=== PATIENT | male | born 1960 | race Caucasian/White ===

== ENCOUNTER 2016-10-02 21:10 | Inpatient (IN) | payer MEDICARE, OTHER ==
[~2016-10-02] VITALS: Ht 177.8 cm; Wt 86.5 kg
[~2016-10-02 21:10] MED LIST: ALBU0.086 INH; DIAZ10 PO; DILA8TAB4 PO; EXFO5TAB PO; IBUP800T23 PO; LORTA10 PO; ROBA750T3 PO; SOMA250T PO
[2016-10-02 21:14] VITALS: BP 159/86; PULSE 128; RESP 20; TEMP 101.9; O2SAT 94
[2016-10-02] MEDS ORDERED: SODIUM CHLOR 0.9% 1000 ML INJ 1,000 ML IV ONE ×2 (21:16)
[2016-10-02] MEDS ORDERED: SODIUM CHLOR 0.9% 1000 ML INJ 700 ML IV ONE (21:16)
[2016-10-02] MEDS ORDERED: MORP1TAB25 PO (21:19)
[2016-10-02] MEDS ORDERED: GLIM2TAB PO (21:19)
[2016-10-02] MEDS ORDERED: HYDR-3583 PO (21:19)
[2016-10-02] MEDS ORDERED: AMLO5TAB2 PO (21:19)
[2016-10-02 21:32] VITALS: RESP 20; O2SAT 97
--- NOTE | 2016-10-02 21:41 | RADRPT ---
EXAM DATE/TIME: 10/02/2016 21:20 [facility] COMPARISON: No previous studies available for comparison. INDICATIONS : Fever. MEDICAL HISTORY : None. SURGICAL HISTORY : Pain stimulator. ENCOUNTER: Initial ACUITY: 1 day PAIN SCORE: 0/10 LOCATION: Bilateral chest FINDINGS: Spinal stimulator is noted. Lungs are clear. Heart and pulmonary vascularity are normal. Portions o f the bony skeleton visualized are unremarkable. CONCLUSION: Negative chest for acute disease. Kevin Spicer MD FACR on October 02, 2016 at 21:38 Board Certified Radiologist. This report was verified electronically.
[2016-10-02] MEDS ORDERED: PIPERACIL-TAZO 4.5 GM PREMIX 100 ML IV ONE (21:45)
[2016-10-02] MEDS ORDERED: VANCOMYCIN INJ 1,000 MG in SODIUM CHLOR 0.9% 250 ML INJ 250 ML IV ONE (21:45)
[2016-10-02 21:55] LABS: AUTOMATED NEUTROPHIL # 4.7 TH/MM3 (1.8-7.7); BASOPHIL % 0.3 % (0.0-2.0); EOSINOPHIL # 0.1 TH/MM3 (0-0.4); EOSINOPHIL % 1.1 % (0.0-4.0); HEMATOCRIT 39.4 % (39.0-51.0); HEMO FLAGS DIFF FINAL; LYMPH % 7.6 % (9.0-44.0); LYMPHOCYTE # 0.4 TH/MM3 (1.0-4.8); MEAN CORPUSCULAR HEMOGLOBIN 29.5 PG (27.0-34.0); MEAN CORPUSCULAR HGB CONC 33.5 % (32.0-36.0); MONO % 5.8 % (0.0-8.0); NEUT % 85.2 % (16.0-70.0); PLATELET COUNT 123 TH/MM3 (150-450); RED BLOOD COUNT 4.48 MIL/MM3 (4.50-5.90); RED CELL DISTRIBUTION WIDTH 13.8 % (11.6-17.2); WHITE BLOOD COUNT 5.5 TH/MM3 (4.0-11.0)
[2016-10-02 22:02] LABS: BLOOD, URINE NEG (NEG); GLUCOSE,URINE NEG (NEG); KETONE, URINE NEG (NEG); NITRITE,URINE NEG (NEG); SQUAMOUS EPITHELIAL CELL URINE 1 /hpf (0-5); URINE COLOR YELLOW (YELLW/STRAW)
[2016-10-02 22:03] LABS: COMMENT (UR) CATH-CULT NOT IND; CULTURE IF INDICATED CATH CULTURE NOT IND
--- NOTE | 2016-10-02 22:09 | RADRPT ---
EXAM DATE/TIME: 10/02/2016 21:45 [facility] COMPARISON: CT BRAIN W/O CONTRAST, March 09, 2014, 0:48. INDICATIONS : Possible seizure today. Head pain RADIATION DOSE: 43.21 CTDIvol (mGy) MEDICAL HISTORY : Hypertension. Seizures. Cerebrovascular disease. SURGICAL HISTORY : None. ENCOUNTER: Initial ACUITY: 1 day PAIN SCALE: 6/10 LOCATION: Cranial TECHNIQUE: Multiple contiguous axial images were obtained of the head. Using automated exposure control and adjustment of the mA and/or kV according to patient size, radiation dose was kept as low as reasonably achievable to obtain optimal diagnostic quality images. FINDINGS: The patient has a history of an ununited dens fracture. Ventricles are of normal size. There is no parenchymal hemorrhage, mass effect or midline shift. There are no extra-axial flu id collections appreciated. Posterior fossa is unremarkable. Orbits and paranasal sinuses appear normal. CONCLUSION: Negative CT scan of the head for an acute process. Kevin Spicer MD FACR on October 02, 2016 at 21:55 Board Certified Radiologist. This report was verified electronically.
[2016-10-02 22:10] LABS: APTT (PATIENT) 29.6 SEC (24.3-30.1); PROTHROMBIN TIME - PATIENT 10.6 SEC (9.8-11.6)
[2016-10-02] MEDS ORDERED: MORPHINE SULFATE 8 MG/ML INJ IV PUSH ONE (22:15)
[2016-10-02 22:29] LABS: ALKALINE PHOSPHATASE 159 U/L (45-117); ALT (GPT) 17 U/L (12-78); ANION GAP 7 MEQ/L (5-15); AST (GOT) 22 U/L (15-37); BLOOD UREA NITROGEN 12 MG/DL (7-18); CHLORIDE 105 MEQ/L (98-107); GLOMERULAR FILTRATION RATE 59 ML/MIN (>89); POTASSIUM 4.5 MEQ/L (3.5-5.1); SODIUM (NA) 138 MEQ/L (136-145); TOTAL BILIRUBIN ADULT 0.5 MG/DL (0.2-1.0)
[2016-10-02 22:30] VITALS: BP 146/89; PULSE 121; RESP 20; O2SAT 97
[2016-10-02] MEDS ORDERED: ACETAMINOPHEN 325 MG TAB PO ONE (22:30)
[2016-10-02 22:38] LABS: CREATINE KINASE 94 U/L (39-308)
[2016-10-02 23:35] VITALS: BP 120/86; PULSE 110; RESP 20; TEMP 100.1; O2SAT 99
[2016-10-03] VITALS (9 sets, daily range): BP systolic 91–137; BP diastolic 62–84; PULSE 62–113; RESP 15–20; TEMP 98.1–100.1; O2SAT 94–100
[2016-10-03] MEDS ORDERED: cefTRIAXone INJ 1,000 MG in SODIUM CHLORIDE 0.9% INJ 100 ML IV ONE (00:45)
[2016-10-03] MEDS ORDERED: Vancomycin Consult Pharmacy XX SCH (01:30)
[2016-10-03] MEDS ORDERED: SODIUM CHLORIDE FLUSH PRN IVF (01:30)
--- NOTE | 2016-10-03 01:49 | RADRPT ---
EXAM DATE/TIME: 10/03/2016 01:01 [facility] COMPARISON: No previous studies available for comparison. INDICATIONS : Lower back pain MEDICAL HISTORY : Hypertension. Seizures. Cerebrovascular disease SURGICAL HISTORY : Lumbar fusions ENCOUNTER: Initial ACUITY: 1 day PAIN SCORE: 5/10 LOCATION: lumbar FINDINGS: A spinal stimulator apparatus is present with control pack overlying the right iliac crest. There has been multilevel lobar spine fusion with hardware. The hardware is intact. Is minimal retrolisthesis of L3 relative to L4 with fusion across these levels. Mild degenerative changes present. No acute bon y findings. CONCLUSION: Degenerative changes and previous lumbar fusion. Spinal stimulator. No acute findings. Jayce Patel MD on October 03, 2016 at 1:46 Board Certified Radiologist. This report was verified electronically.
[2016-10-03] MEDS ORDERED: MORPHINE SULFATE 4 MG/ML INJ IV PUSH ONE (02:00)
[2016-10-03 02:02] LABS: AMPHETAMINE, URINE NEG (NEG); BARBITURATES, URINE NEG (NEG); COCAINE, URINE NEG (NEG)
[2016-10-03 03:01] LABS: CSF LYMPHOCYTES 54 %; CSF MONOCYTES 34 %; CSF NEUTROPHILS 12 %; GROSS BLOOD TUBE #1 1+ (0); GROSS BLOOD TUBE #2 0 (0); GROSS BLOOD TUBE #3 0 (0); GROSS BLOOD TUBE #4 0 (0); SUPERNATE COLOR TUBE #1 CLEAR (CLEAR); SUPERNATE COLOR TUBE #2 CLEAR (CLEAR); SUPERNATE COLOR TUBE #3 CLEAR (CLEAR); SUPERNATE COLOR TUBE #4 CLEAR (CLEAR); WBC TUBE #4 2 /MM3 (0-10)
--- NOTE | 2016-10-03 03:06 | PD ---
HPI Chief Complaint: Altered Mental Status Time Seen by Provider: 21:16 Travel History International Travel<30 days: No Contact w/Intl Traveler<30days: No Traveled to known affect area: No History of Present Illness HPI Patient is a 55 year old male presents after a seizure. Per EMS patient has a history of seizures and was not postictal on their arrival. He was febrile in the ambulance to 102F. they also noted that the patient had a track domi on his right AC area and after some questioning patient admitted to using IV dilaudid. On arrival patient is fairly aggrevated, stating that he wanted to go home. Patient's family arrives and states that the patient is altered sensorium from his baseline. THey state he is "talking out of his mind". Patient is therefore difficult to get history from but states that has a history of chronic back pain and has nerve stimulator in place. Other than back pain he denies SOB, Cough, Fevers at home, congestion, runny nose, headache , abdominal pain, rash. PFSH Past Medical History Arthritis: Yes Autoimmune Disease: No Anxiety: Yes Cancer: No High Cholesterol: Yes COPD: Yes Cerebrovascular Accident: Yes Diminished Hearing: No Endocrine: No Hypertension: Yes Immune Disorder: No Musculoskeletal: Yes (CHRONIC BACK/ KNEE PAIN) Neurologic: Yes (was told he has a brain mass) Myocardial Infarction: Yes Seizures: Yes Tetanus Vaccination: Unknown Influenza Vaccination: No Past Surgical History Joint Replacement: Yes (BILATERAL KNEES) Other Surgery: Yes Social History Alcohol Use: Yes (OCC) Tobacco Use: Yes (3 PPD) Substance Use: No ("SHOT UP DILAUDID TODAY") Allergies-Medications (Allergen,Severity, Reaction): Coded Allergies: No Known Allergies (Verified , 10/02/16) Reported Meds & Prescriptions Reported Meds & Active Scripts Active Reported Amlodipine (Amlodipine Besylate) 5 Mg Tab 5 Mg PO DAILY Glimepiride 2 Mg Tab 2 Mg PO DAILY Take with breakfast or first main meal Morphine ER (Morphine Sulfate) 30 Mg Tab 30 Mg PO BID Hydrocodone-Acetaminophen 10-325 mg Tab 1 Tab PO Q4H PRN Review of Systems Except as stated in HPI: all other systems reviewed are Neg Physical Exam Narrative GENERAL: WD/WN in nad. SKIN: Warm and dry. No rash. HEAD: Atraumatic. Normocephalic. EYES: Pupils equal and round. No scleral icterus. No injection or drainage. ENT: No nasal bleeding or discharge. Mucous membranes pink and moist. NECK: Trachea midline. No JVD. CARDIOVASCULAR: Regular rate and rhythm. RESPIRATORY: No accessory muscle use. Clear to auscultation. Breath sounds equal bilaterally. GASTROINTESTINAL: Abdomen soft, non-tender, nondistended. Hepatic and splenic margins not palpable. MUSCULOSKELETAL: Extremities without clubbing, cyanosis, or edema. No obvious deformities. NEUROLOGICAL: Awake and alert oriented to person and place. Becomes quite agitated when i ask him the date and he will not answer. He yells and uses profanities after this questioning. No obvious cranial nerve deficits. Motor grossly within normal limits. Five out of 5 muscle strength in the arms and legs. Normal speech. PSYCHIATRIC: Appropriate mood and affect; insight and judgment normal. Data Data Last Documented VS Vital Signs Date Time Temp Pulse Resp B/P Pulse Ox O2 Delivery O2 Flow Rate FiO2 10/03/16 00:48 18 10/03/16 00:30 100.1 113 113/67 98 Room Air Orders Electrocardiogram (10/02/16 21:16) Complete Blood Count With Diff (10/02/16 21:16) Comprehensive Metabolic Panel (10/02/16 21:16) Prothrombin Time / Inr (Pt) (10/02/16 21:16) Act Partial Throm Time (Ptt) (10/02/16 21:16) Lactic Acid Sepsis Protocol (10/02/16 21:16) Phosphorus (Po4) (10/02/16 21:16) Lipase (10/02/16 21:16) Ckmb (Isoenzyme) Profile (10/02/16 21:16) Troponin I (10/02/16 21:16) Urinalysis - C+S If Indicated (10/02/16 21:16) Influenzae A/B Antigen (10/02/16 21:16) Blood Culture (10/02/16 21:16) Chest, Single Ap (10/02/16 21:16) Blood Glucose (10/02/16 21:16) Ecg Monitoring (10/02/16 21:16) Iv Access Insert/Monitor (10/02/16 21:16) Oximetry (10/02/16 21:16) Oxygen Administration (10/02/16 21:16) Sodium Chlor 0.9% 1000 Ml Inj (Ns 1000 M (10/02/16 21:16) Sodium Chlor 0.9% 1000 Ml Inj (Ns 1000 M (10/02/16 21:16) Sodium Chlor 0.9% 1000 Ml Inj (Ns 1000 M (10/02/16 21:16) Ammonia (10/02/16 21:21) Ct Brain W/O Iv Contrast(Rout) (10/02/16 ) Piperacil-Tazo 4.5 Gm Premix (Zosyn 4.5 (10/02/16 21:45) Vancomycin Inj (Vancomycin Inj) (10/02/16 21:45) Drug Screen, Random Urine (10/02/16 21:52) Alcohol (Ethanol) (10/02/16 21:52) Morphine Inj (Morphine Inj) (10/02/16 22:15) Acetaminophen (Tylenol) (10/02/16 22:30) Spine, Lumbar - Ltd (Ap & Lat) (10/03/16 ) Ceftriaxone Inj (Rocephin Inj) (10/03/16 00:45) Admit Order (Ed Use Only) (10/03/16 ) Labs Laboratory Tests Test 10/02/16 10/02/16 21:27 21:30 White Blood Count 5.5 TH/MM3 Red Blood Count 4.48 MIL/MM3 Hemoglobin 13.2 GM/DL Hematocrit 39.4 % Mean Corpuscular Volume 88.0 FL Mean Corpuscular Hemoglobin 29.5 PG Mean Corpuscular Hemoglobin 33.5 % Concent Red Cell Distribution Width 13.8 % Platelet Count 123 TH/MM3 Mean Platelet Volume 10.2 FL Neutrophils (%) (Auto) 85.2 % Lymphocytes (%) (Auto) 7.6 % Monocytes (%) (Auto) 5.8 % Eosinophils (%) (Auto) 1.1 % Basophils (%) (Auto) 0.3 % Neutrophils # (Auto) 4.7 TH/MM3 Lymphocytes # (Auto) 0.4 TH/MM3 Monocytes # (Auto) 0.3 TH/MM3 Eosinophils # (Auto) 0.1 TH/MM3 Basophils # (Auto) 0.0 TH/MM3 CBC Comment DIFF FINAL Differential Comment Prothrombin Time 10.6 SEC Prothromb Time International 1.0 RATIO Ratio Activated Partial 29.6 SEC Thromboplast Time Sodium Level 138 MEQ/L Potassium Level 4.5 MEQ/L Chloride Level 105 MEQ/L Carbon Dioxide Level 26.0 MEQ/L Anion Gap 7 MEQ/L Blood Urea Nitrogen 12 MG/DL Creatinine 1.27 MG/DL Estimat Glomerular Filtration 59 ML/MIN Rate Random Glucose 117 MG/DL Lactic Acid Level 1.0 mmol/L Calcium Level 7.9 MG/DL Phosphorus Level 1.0 MG/DL Total Bilirubin 0.5 MG/DL Aspartate Amino Transf 22 U/L (AST/SGOT) Alanine Aminotransferase 17 U/L (ALT/SGPT) Alkaline Phosphatase 159 U/L Ammonia 40 MCMOL/L Total Creatine Kinase 94 U/L Troponin I LESS THAN 0.02 NG/ML Total Protein 7.6 GM/DL Albumin 3.4 GM/DL Lipase 152 U/L Ethyl Alcohol Level LESS THAN 3 MG/DL Urine Color YELLOW Urine Turbidity CLEAR Urine pH 7.0 Urine Specific [place] 1.010 Urine Protein NEG mg/dL Urine Glucose (UA) NEG mg/dL Urine Ketones NEG mg/dL Urine Occult Blood NEG Urine Nitrite NEG Urine Bilirubin NEG Urine Urobilinogen LESS THAN 2.0 MG/DL Urine Leukocyte Esterase NEG Urine WBC 1 /hpf Urine Squamous Epithelial 1 /hpf Cells Microscopic Urinalysis Comment CATH-CULT NOT IND Urine Opiates Screen POS Urine Barbiturates Screen NEG Urine Amphetamines Screen NEG Urine Benzodiazepines Screen NEG Urine Cocaine Screen NEG Urine Cannabinoids Screen NEG MDM Medical Decision Making Medical Screen Exam Complete: Yes Emergency Medical Condition: Yes Differential Diagnosis Sepsis, Meningitis, Epidural abscess possible, PNA, bacteremia. Narrative Course Patient roomed in ED with fever and mild altered mental status. Was called back into room after initial evaluation because patient stated he wanted to leave. He was calmed by his family who convinced him to stay. He was administered morphine as he requested something for his chronic back pain. Patient has nerve stimulator contraindicating MRI. After morphine, patient was apologetic to me and nursing staff. He is now understanding r/b/c/a of LP and consents for procedure. XR LSpine performed to evaluate for LP and there are spaces available. LP performed and yielded clear fluid. Patient is IVD user ( admits IV dilaudid use to me) and has fever of yet unknown source. Discussed with Dr. Beasley for admission to the hospital and he is agreeable. Patient initially covered for vanc and zosyn rocephin added for [employer] coverage prior to LP. Lactic acid negative. After 3L fluid, HR, temp normalized. Overall improved in ED. Critical Care Narrative Critical Care: The total critical care time was 30 minutes. This time spent discussing with consultants, counseling patient and family. Risks to patient were and disability. Time to perform other separately billable procedures was not included in the critical care time. Procedures Procedure Narrative LP: after informed consent where all r/b/c/a where discussed including infectious risk and risk to spinal hardware and nerve stimulator, patient verbalized understanding and agreement to the r/b/c/a and agreed to procedure. Consent signed. Patient prepped with betadine and draped. Cap and mask used. Sterile gloves and technique. L3/L4 site chosen after confirming on xray an open foramen. Patient anesthetized with 1% lidocaine plain. 20g spinal needle passed on first attempt, yielding blood tinged fluid which quickly cleared. 6 cc aliquoted into 4 tubes. Sent for testing. Needle removed, patient tolerated the procedure well with no immediate complication. Diagnosis Primary Impression: Toxic encephalopathy Additional Impressions: Fever Sepsis Admitting Information Admitting Physician Requests: Admit Condition: Stable Mao Bell MD Oct 03, 2016 03:06
[2016-10-03] MEDS ORDERED: GLIMEPIRIDE 2 MG TAB PO SCH (08:00)
[2016-10-03] MEDS: NICOTINE 14 MG/24 HR PATCH TD SCH (08:50)
[2016-10-03] MEDS: amLODIPine BESYLATE 5 MG TAB PO SCH (08:51)
[2016-10-03] MEDS: SODIUM CHLORIDE FLUSH BID IVF SCH ×2 (08:52→20:28)
[2016-10-03] MEDS: MORPHINE SULFATE 30 MG CONTROLLED RELEASE TAB PO SCH ×2 (08:52→20:28)
--- NOTE | 2016-10-03 09:52 | HHI.HP ---
HPI Service CP Hospitalists Primary Care Physician No Primary Care Physician Admission Diagnosis Fever, Altered mental status, SEPSIS. Chief Complaint: Fever Travel History International Travel<30 Days: No Contact w/Intl Traveler <30 Da: No Traveled to Known Affected Are: No History of Present Illness Mr. Vee is a 55 y/o male with seizure disorder, CAD/hx of [place], Hx of CVA with residual left sided weakness who was brought to the ER at [facility] a possible seizure by EMS. Pts daughter lives with him and she called emergency services. Unfortunately she is not available to speak with to obtain further history. Upon arrival in the ER the pt was febrile with a temp of 101.9. The pt was noted to have a track domi on his right AC area and after some questioning patient admitted to using IV Dilaudid. On arrival to the ED pt was reportedly very altered and aggravated. He was calmed by his family who convinced him to stay. Pt does not remember events from yesterday of what brought him into the ER. He admits to previous IVDA with Dilaudid but will not commit to a time frame as to when he last did this. LP was performed in the ER and yielded clear fluid elevated protein level of 66.6. Gram stain and culture of CSF are pending. Pt was given Vanco, Rocephin and Zosyn in the ER. Pt without any specific complaints otherwise. He has been afebrile since admission. Review of Systems Constitutional: COMPLAINS OF: Fever Eyes: DENIES: Vision loss Ears, nose, mouth, throat: DENIES: Hearing loss Respiratory: DENIES: Shortness of breath Cardiovascular: DENIES: Chest pain, Palpitations Gastrointestinal: DENIES: Abdominal pain, Nausea Genitourinary: DENIES: Hematuria, Dysuria Musculoskeletal: DENIES: Back pain, Neck pain Psychiatric: COMPLAINS OF: Confusion, Agitation Past Family Social History Past Medical History Seizure disorder Hx of CVA with LLE weakness CAD with hx of [place] in 2008 Angina Type 2 diabetes mellitus, diet controlled Peripheral neuropathy secondary to diabetes COPD Arthritis HTN Chronic back pain/DDD MIRA not on CPAP Hx of gout IVDA Past Surgical History Back surgery 03/[address] Boyce Bilateral knee surgery 02/2010 Reported Medications Amlodipine (Amlodipine Besylate) 5 Mg Tab 5 Mg PO DAILY Morphine ER (Morphine Sulfate) 30 Mg Tab 30 Mg PO BID Hydrocodone-Acetaminophen 10-325 mg Tab 1 Tab PO Q4H PRN ?Gabapentin 100mg po BID ?Tramadol 50mg PO BID Allergies: Coded Allergies: No Known Allergies (Verified , 10/02/16) Family History Mother at 70 y/o CAD/[place] Father age 52 CAD/[place] 5 siblings, one brother with lung cancer and one with CAD s/p CABG Social History (+)TObacco use, smoked 1.5 ppd Denies any alcohol or illicit drug use Pt is and has 3 children Unemployed currently Physical Exam Vital Signs Vital Signs Date Time Temp Pulse Resp B/P Pulse Ox O2 Delivery O2 Flow Rate FiO2 10/03/16 07:18 68 16 112/68 98 Room Air 10/03/16 04:00 99.2 72 16 91/62 95 Room Air 10/03/16 03:36 16 10/03/16 00:48 18 10/03/16 00:30 100.1 113 20 113/67 98 Room Air 10/02/16 23:35 100.1 110 20 120/86 99 Room Air 10/02/16 22:44 20 10/02/16 22:30 121 20 146/89 97 Room Air 10/02/16 21:32 20 97 10/02/16 21:32 97 Room Air 10/02/16 21:20 124 20 96 Room Air 10/02/16 21:14 101.9 128 20 159/86 94 Physical Exam GENERAL: This is a well-nourished, well-developed patient, in no apparent distress. HEENT: Atraumatic. Normocephalic. No temporal or scalp tenderness. No scleral icterus. Airway patent. NECK: Trachea midline, supple, nontender. CARDIO: Regular. RESP: CTA bilaterally. No wheezes, rales, or rhonchi. ABD: +BS, soft, non-tender, nondistended. EXT: Extremities without clubbing, cyanosis, or edema. NEURO: Awake and alert. Motor and sensory grossly within normal limits. Normal speech. Laboratory Laboratory Tests Test 10/02/16 10/02/16 10/03/16 21:27 21:30 01:40 White Blood Count 5.5 Red Blood Count 4.48 Hemoglobin 13.2 Hematocrit 39.4 Mean Corpuscular Volume 88.0 Mean Corpuscular Hemoglobin 29.5 Mean Corpuscular Hemoglobin 33.5 Concent Red Cell Distribution Width 13.8 Platelet Count 123 Mean Platelet Volume 10.2 Neutrophils (%) (Auto) 85.2 Lymphocytes (%) (Auto) 7.6 Monocytes (%) (Auto) 5.8 Eosinophils (%) (Auto) 1.1 Basophils (%) (Auto) 0.3 Neutrophils # (Auto) 4.7 Lymphocytes # (Auto) 0.4 Monocytes # (Auto) 0.3 Eosinophils # (Auto) 0.1 Basophils # (Auto) 0.0 CBC Comment DIFF FINAL Differential Comment Prothrombin Time 10.6 Prothromb Time International 1.0 Ratio Activated Partial 29.6 Thromboplast Time Sodium Level 138 Potassium Level 4.5 Chloride Level 105 Carbon Dioxide Level 26.0 Anion Gap 7 Blood Urea Nitrogen 12 Creatinine 1.27 Estimat Glomerular Filtration 59 Rate Random Glucose 117 Lactic Acid Level 1.0 Calcium Level 7.9 Phosphorus Level 1.0 Total Bilirubin 0.5 Aspartate Amino Transf 22 (AST/SGOT) Alanine Aminotransferase 17 (ALT/SGPT) Alkaline Phosphatase 159 Ammonia 40 Total Creatine Kinase 94 Troponin I LESS THAN 0.02 Total Protein 7.6 Albumin 3.4 Lipase 152 Ethyl Alcohol Level LESS THAN 3 Urine Color YELLOW Urine Turbidity CLEAR Urine pH 7.0 Urine Specific [place] 1.010 Urine Protein NEG Urine Glucose (UA) NEG Urine Ketones NEG Urine Occult Blood NEG Urine Nitrite NEG Urine Bilirubin NEG Urine Urobilinogen LESS THAN 2.0 Urine Leukocyte Esterase NEG Urine WBC 1 Urine Squamous Epithelial 1 Cells Microscopic Urinalysis Comment CATH-CULT NOT IND Urine Opiates Screen POS Urine Barbiturates Screen NEG Urine Amphetamines Screen NEG Urine Benzodiazepines Screen NEG Urine Cocaine Screen NEG Urine Cannabinoids Screen NEG CSF Volume (Tube 1) 1.0 CSF Supernatant Color (tube 1) CLEAR CSF Gross Blood (Tube 1) 1+ CSF Volume (Tube 2) 1.0 CSF Supernatant Color (tube 2) CLEAR CSF Gross Blood (Tube 2) 0 CSF Volume (Tube 3) 2.0 CSF Supernatant Color (tube 3) CLEAR CSF Gross Blood (Tube 3) 0 CSF Volume (Tube 4) 2.0 CSF Supernatant Color (tube 4) CLEAR CSF Gross Blood (Tube 4) 0 CSF WBC (Tube 4) 2 CSF RBC (Tube 4) 17 CSF Neutrophils 12 CSF Lymphocytes 54 CSF Monocytes 34 CSF Glucose 74 CSF Total Protein 66.6 Date/Time Procedure Status Source Growth 10/03/16 01:40 Gram Stain - Final Resulted Cerebral Spinal Fluid Lumbar Puncture 10/03/16 01:40 CSF Culture Resulted Cerebral Spinal Fluid Lumbar Puncture Pending 10/03/16 01:40 Fungal Smear Received Cerebral Spinal Fluid Lumbar Puncture Pending 10/03/16 01:40 Fungal Culture Received Cerebral Spinal Fluid Lumbar Puncture Pending 10/02/16 21:27 Aerobic Blood Culture Received Blood Peripheral Pending 10/02/16 21:27 Anaerobic Blood Culture Received Blood Peripheral Pending Result Diagram: 10/02/16212610/02/162126 Imaging Last Impressions Lumbar Spine X-Ray 10/03/16 0000 Signed Impressions: Service Date/Time: Monday, October 03, 2016 01:01 - CONCLUSION: Degenerative changes and previous lumbar fusion. Spinal stimulator. No acute findings. Jayce Patel MD Chest X-Ray 10/02/162115 Signed Impressions: Service Date/Time: Sunday, October 02, 2016 21:20 - CONCLUSION: Negative chest for acute disease. Kevin Spicer MD FACR Head CT 10/02/16 0000 Signed Impressions: Service Date/Time: Sunday, October 02, 2016 21:45 - CONCLUSION: Negative CT scan of the head for an acute process. Kevin Spicer MD FACR Septic Shock Reassessment Heart: Regular rate and rhythm Lungs: Clear Skin: Warm Assessment and Plan Problem List: (1) Fever Status: Acute Plan: - Pt admitted with possible seizure, fever and altered mental status. - Pt with a hx of IVDA and recently had injected Dilaudid - Blood cultures drawn at admission - LP in the ER performed which noted an elevated protein level of 66.6. Gram stain and cultures of CSF are pending. - Pt did not have an elevated WBC count at admission and had a normal WBC count in the CSF. - Pt was given Vanco, Rocephin and Zosyn in the ER - Head CT was negative. - Vanco and Rocephin have been continued - Consult infectious disease - Monitor labs and clinical status - DVT prophylaxis (2) Seizure disorder Status: Chronic Plan: - Ativan PRN (3) Diabetes mellitus type 2, diet-controlled Status: Chronic Plan: - NovoLog SSI - Accu checks - Pt reportedly off Amaryl since weight loss (4) CAD (coronary artery disease) Status: Chronic Plan: - Cont. home meds (5) MIRA (obstructive sleep apnea) Status: Chronic Plan: - Pt does not use CPAP (6) History of CVA with residual deficit Status: Chronic Plan: - Pt with remote hx of CVA with LLE weakness - Pt does not take ASA or statin (7) COPD (chronic obstructive pulmonary disease) Status: Chronic Plan: - Duonebs PRN - Tobacco cessation Assessment and Plan Patient examined. Assessment and plan formulated with Renetta Dia PA-C. I agree with the above. Physician Certification 2 Midnight Certification Type: Admission for Inpatient Services Order for Inpatient Services The services are ordered in accordance with Medicare regulations or non- Medicare payer requirements, as applicable. In the case of services not specified as inpatient-only, they are appropriately provided as inpatient services in accordance with the 2-midnight benchmark. Estimated LOS (days): 3 3 days is the estimated time the patient will need to remain in the hospital, assuming treatment plan goals are met and no additional complications. Post-Hospital Plan: Not yet determined Renetta Dia Oct 03, 2016 09:52 Tre He DO Oct 12, 2016 18:10
[2016-10-03] MEDS: VANCOMYCIN INJ 2,000 MG in SODIUM CHLORID 0.9% 500 ML INJ 500 ML IV SCH (13:05)
[2016-10-03] MEDS: ACETAMINOPHEN/HYDROcodone 325 MG/10 MG TAB PO PRN ×2 (13:12→23:43)
[2016-10-03] MEDS ORDERED: LORazepam 2 MG/ML VIAL IM PRN (13:45)
[2016-10-03] MEDS: cefTRIAXone 1,000 MG/NS 100 ML IV SCH ×4 (15:49→23:42)
[2016-10-03] MEDS: INSULIN ASPART SUPPLEMENTAL SCALE SQ SCH ×2 (16:00→20:28)
--- NOTE | 2016-10-03 18:01 | PD.ID.CON ---
History of Present Illness Service Infectious Disease Consult Requested By Reason for Consult Evaluation and Mment of possible acute meningitis. Primary Care Physician No Primary Care Physician Diagnoses: History of Present Illness Most of the history was obtained from medical records. Patient provided some history although ? reliable. Mr. Vee is a 55 y/o male with known seizure disorder ? post CVA, CAD/hx of PR, Hx of CVA with residual left sided weakness who was brought to the ER [place] [facility] after a possible seizure by EMS. Of note patient has multiple admissions in past years for seizures. Patient reportedly lives with his daughter and she called EMS due to worsening AMS and fevers. Patients daughter was not available to corroborate further history. Upon arrival in the ER the pt was febrile with a temp of 101.9. The pt was noted to have a track domi on his right AC area and after some questioning patient admitted to using IV Dilaudid. On arrival to the ED pt was reportedly very altered and aggravated. He was calmed by his family who convinced him to stay. Pt does not remember events from day prior to admission or what brought him into the ER. He admits to previous IVDA with Dilaudid but will not commit to a time frame as to when he last did this. LP was performed in the ER and yielded clear fluid elevated protein level of 66.6. Gram stain and culture of CSF are pending. Pt was given Vanco, Rocephin and Zosyn in the ER. Pt without any specific complaints otherwise. He has been afebrile since admission. Of note patients lactate was normal in the ED. ID was consulted for evaluation and Mment of possible meningitis. Pertinent positives and negatives: Patient reports using walking cane off and on in past. He denies using it recently. He reports falls recently. He also reports change in his gait. He also reports headaches with no visual changes He reports fevers with chills He admits to IVDA. Review of Systems ROS Limitations: Poor Historian Constitutional: COMPLAINS OF: Fever, Chills, Dizziness, DENIES: Diaphoretic episodes, Fatigue, Weight gain, Weight loss, Change in appetite, Night Sweats Endocrine: DENIES: Heat/cold intolerance, Polydipsia, Polyuria, Polyphagia Eyes: DENIES: Blurred vision, Diplopia, Eye inflammation, Eye pain, Vision loss , Photosensitivity, Double Vision Ears, nose, mouth, throat: DENIES: Tinnitus, Hearing loss, Vertigo, Nasal discharge, Oral lesions, Throat pain, Hoarseness, Ear Pain, Running Nose, Epistaxis, Sinus Pain, Toothache, Odynophagia Respiratory: DENIES: Apneas, Cough, Snoring, Wheezing, Hemoptysis, Sputum production, Shortness of breath Cardiovascular: DENIES: Chest pain, Palpitations, Syncope, Dyspnea on Exertion , PND, Lower Extremity Edema, Orthopnea, Claudication Gastrointestinal: DENIES: Abdominal pain, Black stools, Bloody stools, Constipation, Diarrhea, Nausea, Vomiting, Difficulty Swallowing, Anorexia Genitourinary: DENIES: Sexual dysfunction, Urinary frequency, Urinary incontinence, Urgency, Hematuria, Dysuria, Nocturia, Penile Discharge, Testicular Pain, Testicular Swelling Musculoskeletal: COMPLAINS OF: Back pain, Neck pain, DENIES: Joint pain, Muscle aches, Stiffness, Joint Swelling Integumentary: DENIES: Abnormal pigmentation, Nail changes, Pruritus, Rash Hematologic/lymphatic: DENIES: Bruising, Lymphadenopathy Immunologic/allergic: DENIES: Eczema, Urticaria Neurologic: COMPLAINS OF: Abnormal gait, Headache, Poor Balance Psychiatric: DENIES: Anxiety, Confusion, Mood changes, Depression, Hallucinations, Agitation, Suicidal Ideation, Homicidal Ideation, Delusions Past Family Social History Allergies: Coded Allergies: No Known Allergies (Verified , 10/02/16) Past Medical History Seizure disorder Hx of CVA with LLE weakness CAD with hx of PR in 2008 Angina Type 2 diabetes mellitus, diet controlled Peripheral neuropathy secondary to diabetes COPD Arthritis HTN Chronic back pain/DDD MIRA not on CPAP Hx of gout IVDA Past Surgical History Back surgery reports hardware in back and spinal stimulator 03/[address] Boyce Bilateral knee surgery 02/2010 Reported Medications Reported Meds & Active Scripts Active Reported Amlodipine (Amlodipine Besylate) 5 Mg Tab 5 Mg PO DAILY Glimepiride 2 Mg Tab 2 Mg PO DAILY Take with breakfast or first main meal Morphine ER (Morphine Sulfate) 30 Mg Tab 30 Mg PO BID Hydrocodone-Acetaminophen 10-325 mg Tab 1 Tab PO Q4H PRN Active Ordered Medications Current Medications Medications (Trade) Dose Ordered Sig/Ana Route Start Time Stop Time Status Last Admin (Vancomycin Consult Pharmacy) ml @ 0 mls/hr UNSCH XX 10/03/16 01:30 (NS Flush) 2 ml BID IVF 10/03/16 09:00 10/03/16 08:52 IV Flush 2 ml 2 ml UNSCH PRN IVF 10/03/16 01:30 (Rocephin Inj/NS Inj) 100 ml @ 200 mls/hr Q12H IV 10/03/16 12:00 10/03/16 15:49 (Habitrol 14 Mg Patch.24 Hr) 1 patch DAILY TD 10/03/16 09:00 10/03/16 08:50 Miscellaneous Information 1 DAILY TD 10/04/16 09:00 (Norvasc) 5 mg DAILY PO 10/03/16 09:00 10/03/16 08:51 (Oramorph Sr) 30 mg BID PO 10/03/16 09:00 10/03/16 08:52 Acetaminophen/ Hydrocodone Bitart 1 tab 1 tab Q6H PRN PO 10/03/16 01:45 10/03/16 13:12 (Vancomycin Inj/ NS 500 ml Inj) 520 ml @ 250 mls/hr Q18H IV 10/03/16 10:00 10/03/16 13:05 Miscellaneous Information SPECIFIC LAB TO BE DRAWN:VANCOMYCIN TROUGH DATE TO... ONCE ONCE XX 10/05/16 15:45 10/05/16 15:46 (Ativan Inj) 1 mg Q4H PRN IM 10/03/16 13:45 Family History Mother at 70 y/o CAD/PR Father age 52 CAD/PR 5 siblings, one brother with lung cancer and one with CAD s/p CABG Social History (+)Tobacco use, smoked 1.5 ppd Denies any alcohol or illicit drug use although has track garcía. Pt is and has 3 children Unemployed currently Physical Exam Vital Signs Vital Signs Date Time Temp Pulse Resp B/P Pulse Ox O2 Delivery O2 Flow Rate FiO2 10/03/16 15:00 76 18 133/79 94 Room Air 10/03/16 14:44 20 10/03/16 14:00 88 20 125/69 95 Room Air 10/03/16 12:45 98.1 78 16 137/84 100 Room Air 10/03/16 10:00 16 10/03/16 08:00 62 15 104/69 96 Room Air 10/03/16 07:18 68 16 112/68 98 Room Air 10/03/16 04:00 99.2 72 16 91/62 95 Room Air 10/03/16 03:36 16 10/03/16 00:48 18 10/03/16 00:30 100.1 113 20 113/67 98 Room Air 10/02/16 23:35 100.1 110 20 120/86 99 Room Air 10/02/16 22:44 20 10/02/16 22:30 121 20 146/89 97 Room Air 10/02/16 21:32 20 97 10/02/16 21:32 97 Room Air 10/02/16 21:20 124 20 96 Room Air 10/02/16 21:14 101.9 128 20 159/86 94 Physical Exam GENERAL: This is a well-nourished, well-developed patient, in no apparent distress. SKIN: No rashes, ecchymoses or lesions. Cool and dry. HEAD: Atraumatic. Normocephalic. No temporal or scalp tenderness. EYES: Pupils equal round and reactive. Extraocular motions intact. No scleral icterus. No injection or drainage. ENT: Nose without bleeding, purulent drainage or septal hematoma. Throat without erythema, tonsillar hypertrophy or exudate. Uvula midline. Airway patent. NECK: Trachea midline. Supple, nontender, no meningeal signs. Complains of neck pain on flexion but able to flex chin to touch chest. CARDIOVASCULAR: HS audible. No murmur appreciated. RESPIRATORY: Clear to auscultation. Breath sounds equal bilaterally. No wheezes , rales, or rhonchi. GASTROINTESTINAL: Abdomen soft, non-tender, nondistended. MUSCULOSKELETAL: Extremities without clubbing, cyanosis, or edema. No joint tenderness, effusion, or edema noted. No calf tenderness. Negative Homans sign bilaterally. Spinal stimulator palpable under skin. NEUROLOGICAL: Awake and alert. Oriented x 3. Psych: cooperative IV line sites with no e/o infection. Laboratory Laboratory Tests Test 10/02/16 10/02/16 10/03/16 21:27 21:30 01:40 White Blood Count 5.5 Red Blood Count 4.48 Hemoglobin 13.2 Hematocrit 39.4 Mean Corpuscular Volume 88.0 Mean Corpuscular Hemoglobin 29.5 Mean Corpuscular Hemoglobin 33.5 Concent Red Cell Distribution Width 13.8 Platelet Count 123 Mean Platelet Volume 10.2 Neutrophils (%) (Auto) 85.2 Lymphocytes (%) (Auto) 7.6 Monocytes (%) (Auto) 5.8 Eosinophils (%) (Auto) 1.1 Basophils (%) (Auto) 0.3 Neutrophils # (Auto) 4.7 Lymphocytes # (Auto) 0.4 Monocytes # (Auto) 0.3 Eosinophils # (Auto) 0.1 Basophils # (Auto) 0.0 CBC Comment DIFF FINAL Differential Comment Prothrombin Time 10.6 Prothromb Time International 1.0 Ratio Activated Partial 29.6 Thromboplast Time Sodium Level 138 Potassium Level 4.5 Chloride Level 105 Carbon Dioxide Level 26.0 Anion Gap 7 Blood Urea Nitrogen 12 Creatinine 1.27 Estimat Glomerular Filtration 59 Rate Random Glucose 117 Lactic Acid Level 1.0 Calcium Level 7.9 Phosphorus Level 1.0 Total Bilirubin 0.5 Aspartate Amino Transf 22 (AST/SGOT) Alanine Aminotransferase 17 (ALT/SGPT) Alkaline Phosphatase 159 Ammonia 40 Total Creatine Kinase 94 Troponin I LESS THAN 0.02 Total Protein 7.6 Albumin 3.4 Lipase 152 Ethyl Alcohol Level LESS THAN 3 Urine Color YELLOW Urine Turbidity CLEAR Urine pH 7.0 Urine Specific [place] 1.010 Urine Protein NEG Urine Glucose (UA) NEG Urine Ketones NEG Urine Occult Blood NEG Urine Nitrite NEG Urine Bilirubin NEG Urine Urobilinogen LESS THAN 2.0 Urine Leukocyte Esterase NEG Urine WBC 1 Urine Squamous Epithelial 1 Cells Microscopic Urinalysis Comment CATH-CULT NOT IND Urine Opiates Screen POS Urine Barbiturates Screen NEG Urine Amphetamines Screen NEG Urine Benzodiazepines Screen NEG Urine Cocaine Screen NEG Urine Cannabinoids Screen NEG CSF Volume (Tube 1) 1.0 CSF Supernatant Color (tube 1) CLEAR CSF Gross Blood (Tube 1) 1+ CSF Volume (Tube 2) 1.0 CSF Supernatant Color (tube 2) CLEAR CSF Gross Blood (Tube 2) 0 CSF Volume (Tube 3) 2.0 CSF Supernatant Color (tube 3) CLEAR CSF Gross Blood (Tube 3) 0 CSF Volume (Tube 4) 2.0 CSF Supernatant Color (tube 4) CLEAR CSF Gross Blood (Tube 4) 0 CSF WBC (Tube 4) 2 CSF RBC (Tube 4) 17 CSF Neutrophils 12 CSF Lymphocytes 54 CSF Monocytes 34 CSF Glucose 74 CSF Total Protein 66.6 Date/Time Procedure Status Source Growth 10/03/16 01:40 Gram Stain - Final Resulted Cerebral Spinal Fluid Lumbar Puncture 10/03/16 01:40 CSF Culture Resulted Cerebral Spinal Fluid Lumbar Puncture Pending 10/03/16 01:40 Fungal Smear - Final Resulted Cerebral Spinal Fluid Lumbar Puncture NO FUNGAL ELEMENTS SEEN. 10/03/16 01:40 Fungal Culture Resulted Cerebral Spinal Fluid Lumbar Puncture Pending 10/02/16 21:27 Aerobic Blood Culture - Preliminary Resulted Blood Peripheral NO GROWTH IN 1 DAY 10/02/16 21:27 Anaerobic Blood Culture - Preliminary Resulted Blood Peripheral NO GROWTH IN 1 DAY Result Diagram: 10/02/16212610/02/162126 Imaging Last Impressions Lumbar Spine X-Ray 10/03/16 0000 Signed Impressions: Service Date/Time: Monday, October 03, 2016 01:01 - CONCLUSION: Degenerative changes and previous lumbar fusion. Spinal stimulator. No acute findings. Jayce Patel MD Chest X-Ray 10/02/162115 Signed Impressions: Service Date/Time: Sunday, October 02, 2016 21:20 - CONCLUSION: Negative chest for acute disease. Kevin Spicer MD FACR Head CT 10/02/16 0000 Signed Impressions: Service Date/Time: Sunday, October 02, 2016 21:45 - CONCLUSION: Negative CT scan of the head for an acute process. Kevin Spicer MD FACR Assessment and Plan Assessment and Plan Possible meningoencephalitis Seizure disorder Acute metabolic encephalopathy on admission Chronic pain, DJD, IVDA Spinal stimulator in place Spinal hardware lumbar level. Recs: Follow cultures Add CSF Fungal and AFB cultures in view of spinal hardware and stimulator. Follow clinically. 2D ECHO to r/o endocarditis. Check CRP. Check Hepatitis profile. Check HIV antibody. Check CSF HSV1/2 PCR Check RPR Check CSF VDRL Doppler UE involved area of ski tracking. Will determine side in am and order Doppler to r/o septic thrombophlebitis. Consider EEG and neuro consult in view of recurrent seizures and falls. MRI brain (headaches and falls elevated total protein in presence of hardware and spinal stimulator) MRI Lumbar spine d.w : Spinal stimulator remote needs to be obtained from daughters home to determine compatibility with PO MRI machine vs Main hospital MRI machine. d/w principal technical architect. d/w patient plan briefly. d/w RN Time spent in excess of 60 mins, critical thinking and decision making. Tianna Bueno MD Oct 03, 2016 18:00
--- NOTE | 2016-10-03 20:05 | EKG ---
Date Performed: 10/02/2016 Time Performed: 22:21:17 PTAGE: 55 years EKG: SINUS TACHYCARDIA ABNORMAL RHYTHM ECG PREVIOUS TRACING : 03/09/2014 00.29 Compared to the previous tracing, rate faster DOCTOR: Luke Galaviz Interpretating Date/Time 10/03/2016 20:03:50
[2016-10-04 00:25] VITALS: BP 138/76; PULSE 73; RESP 16; TEMP 98.5; O2SAT 98
[2016-10-04] MEDS: VANCOMYCIN INJ 2,000 MG in SODIUM CHLORID 0.9% 500 ML INJ 500 ML IV SCH ×2 (04:09→22:05)
[2016-10-04] MEDS: INSULIN ASPART SUPPLEMENTAL SCALE SQ SCH ×4 (05:47→21:00)
[2016-10-04] MEDS: ACETAMINOPHEN/HYDROcodone 325 MG/10 MG TAB PO PRN ×3 (05:47→20:00)
[2016-10-04 06:22] LABS: AUTOMATED NEUTROPHIL # 1.5 TH/MM3 (1.8-7.7); BASOPHIL % 1.1 % (0.0-2.0); EOSINOPHIL # 0.1 TH/MM3 (0-0.4); EOSINOPHIL % 4.3 % (0.0-4.0); HEMATOCRIT 39.7 % (39.0-51.0); HEMO FLAGS DIFF FINAL; LYMPH % 39.3 % (9.0-44.0); LYMPHOCYTE # 1.3 TH/MM3 (1.0-4.8); MEAN CELL VOLUME 88.7 FL (80.0-100.0); MEAN CORPUSCULAR HEMOGLOBIN 29.2 PG (27.0-34.0); MONO % 9.3 % (0.0-8.0); PLATELET COUNT 142 TH/MM3 (150-450); RED BLOOD COUNT 4.47 MIL/MM3 (4.50-5.90); RED CELL DISTRIBUTION WIDTH 13.9 % (11.6-17.2); WHITE BLOOD COUNT 3.2 TH/MM3 (4.0-11.0)
[2016-10-04 06:42] LABS: BICARBONATE 27.4 MEQ/L (21.0-32.0); MAGNESIUM 2.2 MG/DL (1.5-2.5); POTASSIUM 4.2 MEQ/L (3.5-5.1)
[2016-10-04 08:00] VITALS: PULSE 65
[2016-10-04 08:56] VITALS: BP 135/91; PULSE 74; RESP 18; TEMP 97.3; O2SAT 97
[2016-10-04] MEDS: SODIUM CHLORIDE FLUSH BID IVF SCH ×2 (09:00→21:11)
[2016-10-04] MEDS: REMOVE OLD NICODERM (NICOTINE) PATCH TD SCH (09:00)
[2016-10-04] MEDS: NICOTINE 14 MG/24 HR PATCH TD SCH (09:22)
[2016-10-04] MEDS: MORPHINE SULFATE 30 MG CONTROLLED RELEASE TAB PO SCH ×2 (09:22→21:11)
[2016-10-04] MEDS: amLODIPine BESYLATE 5 MG TAB PO SCH (09:22)
[2016-10-04] MEDS: cefTRIAXone 1,000 MG/NS 100 ML IV SCH ×2 (11:39)
[2016-10-04 12:00] VITALS: BP 118/76; PULSE 71; RESP 18; TEMP 98; O2SAT 98
--- NOTE | 2016-10-04 12:46 | HHI.PR ---
Subjective Remarks No new complaints today. NO seizure activity reported Afebrile. Objective Vitals Vital Signs Date Time Temp Pulse Resp B/P Pulse Ox O2 Delivery O2 Flow Rate FiO2 10/04/16 08:56 97.3 74 18 135/91 97 10/04/16 00:25 98.5 73 16 138/76 98 10/03/16 20:00 70 10/03/16 17:00 72 20 131/73 94 Room Air 10/03/16 15:00 76 18 133/79 94 Room Air 10/03/16 14:44 20 10/03/16 14:00 88 20 125/69 95 Room Air 10/03/16 12:45 98.1 78 16 137/84 100 Room Air 10/03/16 10/03/16 10/04/16 15:00 23:00 07:00 Intake Total 366 ml Output Total 2200 ml 1350 ml Balance -2200 ml -984 ml Intake Oral 366 ml Output Urine Total 2200 ml 1350 ml # Voids 2 1 Result Diagram: 10/04/16 0515 10/04/16 0515 Other Results Laboratory Tests Test 10/02/16 10/02/16 10/03/16 10/04/16 21:27 21:30 01:40 05:15 White Blood Count 5.5 TH/MM3 3.2 TH/MM3 Red Blood Count 4.48 MIL/MM3 4.47 MIL/MM3 Hemoglobin 13.2 GM/DL 13.1 GM/DL Hematocrit 39.4 % 39.7 % Mean Corpuscular Volume 88.0 FL 88.7 FL Mean Corpuscular Hemoglobin 29.5 PG 29.2 PG Mean Corpuscular Hemoglobin 33.5 % 33.0 % Concent Red Cell Distribution Width 13.8 % 13.9 % Platelet Count 123 TH/MM3 142 TH/MM3 Mean Platelet Volume 10.2 FL 10.4 FL Neutrophils (%) (Auto) 85.2 % 46.0 % Lymphocytes (%) (Auto) 7.6 % 39.3 % Monocytes (%) (Auto) 5.8 % 9.3 % Eosinophils (%) (Auto) 1.1 % 4.3 % Basophils (%) (Auto) 0.3 % 1.1 % Neutrophils # (Auto) 4.7 TH/MM3 1.5 TH/MM3 Lymphocytes # (Auto) 0.4 TH/MM3 1.3 TH/MM3 Monocytes # (Auto) 0.3 TH/MM3 0.3 TH/MM3 Eosinophils # (Auto) 0.1 TH/MM3 0.1 TH/MM3 Basophils # (Auto) 0.0 TH/MM3 0.0 TH/MM3 CBC Comment DIFF FINAL DIFF FINAL Differential Comment Prothrombin Time 10.6 SEC Prothromb Time International 1.0 RATIO Ratio Activated Partial 29.6 SEC Thromboplast Time Sodium Level 138 MEQ/L 141 MEQ/L Potassium Level 4.5 MEQ/L 4.2 MEQ/L Chloride Level 105 MEQ/L 108 MEQ/L Carbon Dioxide Level 26.0 MEQ/L 27.4 MEQ/L Anion Gap 7 MEQ/L 6 MEQ/L Blood Urea Nitrogen 12 MG/DL 12 MG/DL Creatinine 1.27 MG/DL 1.18 MG/DL Estimat Glomerular Filtration 59 ML/MIN 64 ML/MIN Rate Random Glucose 117 MG/DL 117 MG/DL Lactic Acid Level 1.0 mmol/L Calcium Level 7.9 MG/DL 8.8 MG/DL Phosphorus Level 1.0 MG/DL Total Bilirubin 0.5 MG/DL Aspartate Amino Transf 22 U/L (AST/SGOT) Alanine Aminotransferase 17 U/L (ALT/SGPT) Alkaline Phosphatase 159 U/L Ammonia 40 MCMOL/L Total Creatine Kinase 94 U/L Troponin I LESS THAN 0.02 NG/ML Total Protein 7.6 GM/DL Albumin 3.4 GM/DL Lipase 152 U/L Ethyl Alcohol Level LESS THAN 3 MG/DL Urine Color YELLOW Urine Turbidity CLEAR Urine pH 7.0 Urine Specific [place] 1.010 Urine Protein NEG mg/dL Urine Glucose (UA) NEG mg/dL Urine Ketones NEG mg/dL Urine Occult Blood NEG Urine Nitrite NEG Urine Bilirubin NEG Urine Urobilinogen LESS THAN 2.0 MG/DL Urine Leukocyte Esterase NEG Urine WBC 1 /hpf Urine Squamous Epithelial 1 /hpf Cells Microscopic Urinalysis Comment CATH-CULT NOT IND Urine Opiates Screen POS Urine Barbiturates Screen NEG Urine Amphetamines Screen NEG Urine Benzodiazepines Screen NEG Urine Cocaine Screen NEG Urine Cannabinoids Screen NEG CSF Volume (Tube 1) 1.0 ML CSF Supernatant Color (tube 1) CLEAR CSF Gross Blood (Tube 1) 1+ CSF Volume (Tube 2) 1.0 ML CSF Supernatant Color (tube 2) CLEAR CSF Gross Blood (Tube 2) 0 CSF Volume (Tube 3) 2.0 ML CSF Supernatant Color (tube 3) CLEAR CSF Gross Blood (Tube 3) 0 CSF Volume (Tube 4) 2.0 ML CSF Supernatant Color (tube 4) CLEAR CSF Gross Blood (Tube 4) 0 CSF WBC (Tube 4) 2 /MM3 CSF RBC (Tube 4) 17 /MM3 CSF Neutrophils 12 % CSF Lymphocytes 54 % CSF Monocytes 34 % CSF Glucose 74 MG/DL CSF Total Protein 66.6 MG/DL Magnesium Level 2.2 MG/DL C-Reactive Protein 4.28 MG/DL Imaging Last Impressions Lumbar Spine X-Ray 10/03/16 0000 Signed Impressions: Service Date/Time: Monday, October 03, 2016 01:01 - CONCLUSION: Degenerative changes and previous lumbar fusion. Spinal stimulator. No acute findings. Jayce Patel MD Chest X-Ray 10/02/166 Signed Impressions: Service Date/Time: Sunday, October 02, 2016 21:20 - CONCLUSION: Negative chest for acute disease. Kevin Spicer MD FACR Head CT 10/02/16 0000 Signed Impressions: Service Date/Time: Sunday, October 02, 2016 21:45 - CONCLUSION: Negative CT scan of the head for an acute process. Kevin Spicer MD FACR Objective Remarks General: NAD< AAOx3 Chest: CTA bilaterally Cardiac: Regular Abd: +BS, soft ND/NT Ext: No edema, erythema of the right upper arm A/P Problem List: (1) Fever Status: Acute Plan: - Pt admitted with possible seizure, fever and altered mental status. - Pt with a hx of IVDA and recently had injected Dilaudid - Blood cultures drawn at admission - LP in the ER performed which noted an elevated protein level of 66.6. Gram stain and cultures of CSF are pending. - Pt was given Vanco, Rocephin and Zosyn in the ER - Head CT was negative. - Appreciate ID consultation. - Blood cultures (10/02) with NGTD - 2D ECHO to r/o endocarditis. - CRP elevated at 4.28 - Hepatitis panel pending, HIV antibody is pending, - CSF HSV1/2 PCR, and VDRL are pending. - Doppler right UE involved area of ski tracking to r/o septic thrombophlebitis. - MRI brain and lumbar spine has been ordered but its not clear if his implanted device is MRI compatible. - Cont. Vanco and Rocephin - Monitor labs and clinical status - DVT prophylaxis (2) Seizure disorder Status: Chronic Plan: - EEG in view of possible recurrent seizures and falls. - Consult Neurology - Ativan PRN (3) Diabetes mellitus type 2, diet-controlled Status: Chronic Plan: - NovoLog SSI - Accu checks - Pt reportedly off Amaryl since weight loss (4) CAD (coronary artery disease) Status: Chronic Plan: - Cont. home meds (5) MIRA (obstructive sleep apnea) Status: Chronic Plan: - Pt does not use CPAP (6) History of CVA with residual deficit Status: Chronic Plan: - Pt with remote hx of CVA with LLE weakness - Pt does not take ASA or statin (7) COPD (chronic obstructive pulmonary disease) Status: Chronic Plan: - Duonebs PRN - Tobacco cessation Assessment and Plan Patient examined. Assessment and plan formulated with Renetta Dia PA-C. I agree with the above. Renetta Dia Oct 04, 2016 12:46 Tre He DO Oct 12, 2016 18:11
[2016-10-04] MEDS ORDERED: GADODIAMIDE PF 287 MG/ML 20 ML VIAL (for RAD MRI) IV ONE (15:25)
[2016-10-04 16:00] VITALS: BP 132/96; PULSE 80; RESP 18; TEMP 97.9; O2SAT 95
--- NOTE | 2016-10-04 16:01 | RADRPT ---
EXAM DATE/TIME: 10/04/2016 14:46 [facility] COMPARISON: No previous studies available for comparison. INDICATIONS : Osteomyelitis. Epidural abscess. CONTRAST: 17 cc Omniscan (gadodiamide) IV MEDICAL HISTORY : Hypertension. Diabetes mellitus type 2. SURGICAL HISTORY : Bilateral knee, Medtronic Prime Advanced Surescan neurostimulator ENCOUNTER: Subsequent ACUITY: 3 day PAIN SCORE: 3/10 LOCATION: back TECHNIQUE: Multiplanar multisequence MRI of the lumbar spine was performed with and without contrast. FINDINGS: Sagittal images demonstrate normal vertebral body alignment and curvature. No focal areas of marrow r eplacement are identified. The conus terminates normally. Axial images were performed from T12-L1 thr ough L5-S1. There is anterior and posterior fusion with pedicle screws and interbody graft from L3-L4 with screws only present on the left. Following the administration of contrast no abnormal enhanceme nt is identified. There is a Schmorl's node on the superior endplate of L4. T12-L1: No significant abnormalities identified. L1-L2: No significant abnormalities identified. L2-L3: There is mild diffuse annular bulge of the disc. The neural foramina are clear bilaterally. There is no significant spinal canal stenosis. L3-L4: Postsurgical changes as above. There is mild facet arthritis and ligamentum flavum hypertrophy bilate rally. The neural foramina are clear bilaterally. L4-L5: There is mild annular bulge of the disc. There is moderate facet arthritis bilaterally with ligamentu m flavum hypertrophy. There is mild spinal canal stenosis. The neural foramina are clear bilaterally. L5-S1: There is no significant spinal canal stenosis. There is foraminal protrusion to the right with modera te foraminal narrowing. The left-sided neural foramen is clear. CONCLUSION: No evidence of osteomyelitis or epidural abscess. Foraminal protrusions of the right at L5-S1 with mo derate foraminal narrowing. Jessee Romero MD on October 04, 2016 at 15:47 Board Certified Radiologist. This report was verified electronically.
--- NOTE | 2016-10-04 16:04 | RADRPT ---
EXAM DATE/TIME: 10/04/2016 14:46 [facility] COMPARISON: No previous studies available for comparison. INDICATIONS : Abscess. Altered mental status. CONTRAST: 17 cc Omniscan (gadodiamide) IV MEDICAL HISTORY : Hypertension. Diabetes mellitus type 2. SURGICAL HISTORY : Bilateral knees, Medtronic Prime Advanced Surescan neurostimulator ENCOUNTER: Subsequent ACUITY: 3 day PAIN SCORE: 2/10 LOCATION: cranial TECHNIQUE: Multiplanar, multisequence MRI of the brain was performed both prior to and following the administrat ion of paramagnetic contrast. FINDINGS: MRI of the brain is performed in sagittal, axial and coronal planes. The craniocervical junction and midline structures are unremarkable. Diffusion weighted images demonstrate no abnormality. There is n o evidence of acute cortical infarction, acute hemorrhage, mass effect or midline shift is seen. Ther e is periventricular hyperintensity on the T2 weighted images consistent with small vessel vascular d isease slightly more than expected in a patient of this age. Following the administration of contrast no abnormal enhancement is identified. Posterior fossa structures are unremarkable. CONCLUSION: 1. No evidence of acute intracranial pathology. No masses are identified. Jessee Romero MD on October 04, 2016 at 16:00 Board Certified Radiologist. This report was verified electronically.
--- NOTE | 2016-10-04 18:35 | RADRPT ---
EXAM DATE/TIME: 10/04/2016 16:33 [facility] COMPARISON: No previous studies available for comparison. INDICATIONS : Right upper extremity erythema. MEDICAL HISTORY : Myocardial infarction. Chronic obstructive pulmonary disease. Hypertension. IV drug use. SURGICAL HISTORY : Bilateral knee surgery. ENCOUNTER: Initial ACUITY: 1 day PAIN SCORE: 0/10 LOCATION: Right arm. FINDINGS: There is spontaneous flow documented in the brachial, basilic, cephalic, axillary, and subclavian vei ns. The vessels are compressible and augmentation response is documented. No filling defects are se en. The flow is phasic with respiration. Direction of flow in the jugular vein is caudal. CONCLUSION: No DVT of the right upper extremity. Jayce Rea MD on October 04, 2016 at 18:33 Board Certified Radiologist. This report was verified electronically.
[2016-10-04 20:00] VITALS: BP 115/74; PULSE 70; PULSE 75; RESP 16; TEMP 98.1; O2SAT 96
--- NOTE | 2016-10-04 20:00 | MG ---
cc: MAZIN OWENS MD Lab No: [id number] Date: 10/04/2016 Age: 55 Sex: M Race: DATE OF : 1960. HISTORY: 55-year-old with history of seizures, chronic back pain. DESCRIPTION OF RECORD: Posterior rhythm demonstrates 8-12 Hz activity, 20-50 microvolts. Frequent eye movement artifact noted. Some driving noted with photic stimulation. Bursts of generalized theta. Attenuation and slowing of background suggests a drowsy state. Theta slowing dysmorphic waveforms. Tiny left temporal sharp transients T3-T5 at epoch 130 with [id number] change and a couple more next epoch. Single lead EKG showing sinus rhythm. INTERPRETATION: Mild encephalopathy in drowsy state. No active seizures. Clinical correlation. Mazin Owens MD /JCJohn /7:35 PM /7:52 PM
[2016-10-05 00:20] VITALS: BP 112/67; PULSE 63; RESP 18; TEMP 98.8; O2SAT 99
[2016-10-05] MEDS: levETIRAcetam 500 MG TAB PO SCH ×2 (00:28→10:11)
[2016-10-05] MEDS: ACETAMINOPHEN/HYDROcodone 325 MG/10 MG TAB PO PRN (03:14)
[2016-10-05 03:57] VITALS: BP 113/62; PULSE 69; RESP 16; TEMP 98.5; O2SAT 98
[2016-10-05] MEDS: INSULIN ASPART SUPPLEMENTAL SCALE SQ SCH ×3 (05:46→16:00)
--- NOTE | 2016-10-05 06:27 | MB ---
cc: RA VISHALJAMES DATE OF CONSULTATION 10/04/2016 REASON FOR CONSULTATION Seizures. HISTORY OF PRESENT ILLNESS A 55-year-old male with a past medical history of seizure disorder status post history of stroke with residual left-sided lower extremity weakness, coronary artery disease, history of myocardial infarction. He was brought to the ER after his daughter witnessed him to have seizure activity and he was disoriented to her. In the emergency room the patient was found febrile at 101.9. The patient was reportedly altered and agitated. The patient states that she has had history of stroke in 2010 which left him with mild left lower extremity weakness and then he started to have these seizure episodes. He describes them as brief where he stares and shakes his arms but vocationally he has those "big ones" where he has tonic-clonic convulsions. He follows up with primary care physician, does not follow up with neurology and he is treated by Ativan as he thinks it calms this down but he still states that he gets seizures frequently, especially "the small ones" During the episodes he denies any tongue biting, loss of sphincter control or foaming from the mouth. The patient states clearly that he smells something "musky" before the episode and then he has the seizure and it seems like he is describing and aura. He does not have any family history of seizures. REVIEW OF SYSTEMS A 12-point review of systems is negative except for what is stated in the HPI. PAST MEDICAL HISTORY 1. Seizure disorder. 2. Stroke with left lower extremity weakness. 3. Coronary artery disease with history of OK in 2008. 4. Angina. 5. Type 2 diabetes mellitus. 6. Peripheral neuropathy, diabetic in nature. 7. COPD. 8. Arthritis. 9. Hypertension. 10. Chronic back pain. 11. Obstructive sleep apnea, not on C-PAP. 12. History of gout 13. IV Dilaudid use. PAST SURGICAL HISTORY 1. Back surgery in March 2012. 2. Bilateral knee surgery 2009. MEDICATIONS 1. Amlodipine. 1. Morphine. 2. Hydrocodone. 3. Gabapentin. 4. Tramadol. ALLERGIES No known allergies. FAMILY HISTORY Mother at 70 because of coronary artery disease, OK. Father at age 52, coronary artery disease and [place]. SOCIAL HISTORY Smokes 1.5 packets per day. Denies alcohol or illicit drug use. PHYSICAL EXAMINATION GENERAL: Well-nourished, awake, alert, not in acute distress. Good historian. HEENT: Atraumatic, normocephalic. Intact hearing and intact vision. NECK: Trachea in the midline, supple. No meningeal irritation. No carotid bruit. CARDIOVASCULAR: Regular sinus rhythm. No murmurs. RESPIRATORY: Clear to auscultation bilateral. No wheezes. EXTREMITIES: Without clubbing, cyanosis or edema. Moves extremities. NEUROLOGICAL: Awake, alert, oriented to time, person and place. Intact speech. Intact speech content. Cranial nerves II-XII are grossly intact. Motor system 5/5 bilateral, symmetrical other than 5-/5 in left hip flexion and the left foot dorsiflexion. Normal tone. No abnormal movements. Reflexes are 2+ bilateral and symmetrical. Plantars are bilaterally downgoing. Sensation to pain and temperature is intact bilateral and symmetrical. Cerebellar function - Wvvqjr-fe-avoj and fegn-oz-mdbg are intact. LABORATORY DATA White blood cells 3.2, hemoglobin 13.1, platelets 142. Sodium 141, potassium 4.2, chloride 108, GFR 64, random glucose 117, calcium 8.8, magnesium 2.2. C-reactive protein 4.28, alkaline phosphatase 159. CSF is clear, 1+ gross blood, RBCs 17, neutrophils 12, white blood cells 2, protein 66, glucose 74. Pending VDRL, Streptococcus antigen. Hepatitis C antibody reported as positive. INR 1. DIAGNOSTIC IMAGING MRI - No obvious acute intracranial pathology. No masses identified. There is periventricular hyperintensity of T2 weighted consistent with small vessel vascular disease, slightly more than expected in a patient of this at age. Following the administration of contrast, no abnormal enhancement is identified. Posterior fossa structures are unremarkable. Lumbar spine MRI with and without contrast revealed no evidence of osteomyelitis or epidural abscess. Foraminal protrusions of the right L5-S1 with moderate foraminal narrowing. Head CT with no acute intracranial abnormality. EEG Mild encephalopathy in the drowsy state, no epileptic seizure. Clinical correlation. DIAGNOSTIC IMPRESSION - Post stroke seizures. The patient is on no seizure medications. I discussed with the patient the nature of the symptoms and the need to be started on seizure medication despite a negative EEG and an unremarkable MRI of the brain. The patient agrees. 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 Neuro checks q. 4 hours. 2. Start Keppra 500 mg twice daily. 3. Seizure precautions. 4. DVT prophylaxis. 5. PT, OT recommendations are appreciated. Thank you for the opportunity to participate in the care of your patient. Raman Salgado MD RGO/SSB /11:35 PM /6:02 AM MTDMeg
[2016-10-05 06:47] LABS: AUTOMATED NEUTROPHIL # 1.9 TH/MM3 (1.8-7.7); BASOPHIL % 0.9 % (0.0-2.0); EOSINOPHIL # 0.2 TH/MM3 (0-0.4); EOSINOPHIL % 3.9 % (0.0-4.0); HEMATOCRIT 39.2 % (39.0-51.0); HEMO FLAGS DIFF FINAL; LYMPH % 40.6 % (9.0-44.0); LYMPHOCYTE # 1.7 TH/MM3 (1.0-4.8); MEAN CELL VOLUME 87.2 FL (80.0-100.0); MEAN CORPUSCULAR HEMOGLOBIN 29.3 PG (27.0-34.0); MEAN CORPUSCULAR HGB CONC 33.6 % (32.0-36.0); MONO % 8.8 % (0.0-8.0); NEUT % 45.8 % (16.0-70.0); PLATELET COUNT 157 TH/MM3 (150-450); RED BLOOD COUNT 4.49 MIL/MM3 (4.50-5.90); WHITE BLOOD COUNT 4.1 TH/MM3 (4.0-11.0)
[2016-10-05 07:09] LABS: BICARBONATE 26.7 MEQ/L (21.0-32.0); MAGNESIUM 2.2 MG/DL (1.5-2.5); POTASSIUM 3.7 MEQ/L (3.5-5.1)
[2016-10-05 08:00] VITALS: BP 124/65; PULSE 62; RESP 18; TEMP 95.6; O2SAT 92
[2016-10-05] MEDS: REMOVE OLD NICODERM (NICOTINE) PATCH TD SCH (09:00)
[2016-10-05 09:47] LABS: HSV 1,PCR Negative (Negative)
[2016-10-05] MEDS: MORPHINE SULFATE 30 MG CONTROLLED RELEASE TAB PO SCH (10:11)
[2016-10-05] MEDS: amLODIPine BESYLATE 5 MG TAB PO SCH (10:11)
[2016-10-05] MEDS: SODIUM CHLORIDE FLUSH BID IVF SCH (10:12)
[2016-10-05] MEDS: NICOTINE 14 MG/24 HR PATCH TD SCH (10:12)
[2016-10-05 11:36] VITALS: BP 81/50; PULSE 73; RESP 18; TEMP 98.2; O2SAT 98
[2016-10-05] MEDS: cefTRIAXone 1,000 MG/NS 100 ML IV SCH ×4 (12:06)
--- NOTE | 2016-10-05 15:00 | HHI.IDPN ---
Subjective Subjective Remarks Mr. Vee is a 55 y/o male with known seizure disorder ? post CVA, CAD/hx of DC, Hx of CVA with residual left sided weakness who was brought to the ER at [facility] [place] after a possible seizure by EMS. Underwent LP to r.o meningitis. Possible aspiration on admission. Overnight events reviewed No fevers No rash no diarrhea No headache Antibiotics Ceftriaxone IV Vanco IV Lines Line sites with no e/o infection Past Medical History reviewed Allergies: Coded Allergies: No Known Allergies (Verified , 10/02/16) Objective . Vital Signs Date Time Temp Pulse Resp B/P Pulse Ox O2 Delivery O2 Flow Rate FiO2 10/05/16 11:36 98.2 73 18 81/50 98 10/05/16 08:00 95.6 62 18 124/65 92 10/05/16 03:57 98.5 69 16 113/62 98 10/05/16 00:20 98.8 63 18 112/67 99 10/04/16 20:00 98.1 70 16 115/74 96 10/04/16 20:00 75 10/04/16 16:00 97.9 80 18 132/96 95 10/04/16 10/04/16 10/05/16 15:00 23:00 07:00 Intake Total 600 ml 240 ml 240 ml Output Total 1000 ml 650 ml 400 ml Balance -400 ml -410 ml -160 ml Intake Oral 600 ml 240 ml 240 ml Output Urine Total 1000 ml 650 ml 400 ml # Bowel Movements 0 . Laboratory Tests Test 10/04/16 10/05/16 05:15 06:03 White Blood Count 3.2 TH/MM3 4.1 TH/MM3 Red Blood Count 4.47 MIL/MM3 4.49 MIL/MM3 Hemoglobin 13.1 GM/DL 13.1 GM/DL Hematocrit 39.7 % 39.2 % Mean Corpuscular Volume 88.7 FL 87.2 FL Mean Corpuscular Hemoglobin 29.2 PG 29.3 PG Mean Corpuscular Hemoglobin 33.0 % 33.6 % Concent Red Cell Distribution Width 13.9 % 14.0 % Platelet Count 142 TH/MM3 157 TH/MM3 Mean Platelet Volume 10.4 FL 10.4 FL Neutrophils (%) (Auto) 46.0 % 45.8 % Lymphocytes (%) (Auto) 39.3 % 40.6 % Monocytes (%) (Auto) 9.3 % 8.8 % Eosinophils (%) (Auto) 4.3 % 3.9 % Basophils (%) (Auto) 1.1 % 0.9 % Neutrophils # (Auto) 1.5 TH/MM3 1.9 TH/MM3 Lymphocytes # (Auto) 1.3 TH/MM3 1.7 TH/MM3 Monocytes # (Auto) 0.3 TH/MM3 0.4 TH/MM3 Eosinophils # (Auto) 0.1 TH/MM3 0.2 TH/MM3 Basophils # (Auto) 0.0 TH/MM3 0.0 TH/MM3 CBC Comment DIFF FINAL DIFF FINAL Differential Comment Laboratory Tests Test 10/04/16 10/05/16 05:15 06:03 Sodium Level 141 MEQ/L 142 MEQ/L Potassium Level 4.2 MEQ/L 3.7 MEQ/L Chloride Level 108 MEQ/L 108 MEQ/L Carbon Dioxide Level 27.4 MEQ/L 26.7 MEQ/L Anion Gap 6 MEQ/L 7 MEQ/L Blood Urea Nitrogen 12 MG/DL 16 MG/DL Creatinine 1.18 MG/DL 1.27 MG/DL Estimat Glomerular Filtration 64 ML/MIN 59 ML/MIN Rate Random Glucose 117 MG/DL 119 MG/DL Calcium Level 8.8 MG/DL 8.9 MG/DL Magnesium Level 2.2 MG/DL 2.2 MG/DL C-Reactive Protein 4.28 MG/DL Microbiology Date/Time Procedure Status Source Growth 10/02/16 21:22 Aerobic Blood Culture - Preliminary Resulted Blood Peripheral NO GROWTH IN 3 DAYS 10/02/16 21:22 Anaerobic Blood Culture - Preliminary Resulted Blood Peripheral NO GROWTH IN 3 DAYS 10/02/16 21:27 Aerobic Blood Culture - Preliminary Resulted Blood Peripheral NO GROWTH IN 3 DAYS 10/02/16 21:27 Anaerobic Blood Culture - Preliminary Resulted Blood Peripheral NO GROWTH IN 3 DAYS 10/03/16 01:40 Gram Stain - Final Resulted Cerebral Spinal Fluid Lumbar Puncture 10/03/16 01:40 CSF Culture - Preliminary Resulted Cerebral Spinal Fluid Lumbar Puncture NO GROWTH IN 48 HOURS. 10/03/16 01:40 Fungal Smear - Final Resulted Cerebral Spinal Fluid Lumbar Puncture NO FUNGAL ELEMENTS SEEN. 10/03/16 01:40 Fungal Culture Resulted Cerebral Spinal Fluid Lumbar Puncture Pending 10/03/16 01:40 Acid Fast Stain - Final Resulted Cerebral Spinal Fluid Lumbar Puncture NO ACID FAST BACILLI SEEN 10/03/16 01:40 Mycobacterial Culture Resulted Cerebral Spinal Fluid Lumbar Puncture Pending Imaging Last Impressions Upper Extremity Ultrasound 10/04/16 0000 Signed Impressions: Service Date/Time: September 16:33 - CONCLUSION: No DVT of the right upper extremity. Jayce Rea MD Lumbar Spine MRI 10/04/16 0000 Signed Impressions: Service Date/Time: September 14:46 - CONCLUSION: No evidence of osteomyelitis or epidural abscess. Foraminal protrusions of the right at L5-S1 with moderate foraminal narrowing. Jessee Romero MD Brain MRI 10/04/16 0000 Signed Impressions: Service Date/Time: September 14:46 - CONCLUSION: 1. No evidence of acute intracranial pathology. No masses are identified. Jessee Romero MD Lumbar Spine X-Ray 10/03/16 0000 Signed Impressions: Service Date/Time: Monday, October 03, 2016 01:01 - CONCLUSION: Degenerative changes and previous lumbar fusion. Spinal stimulator. No acute findings. Jayce Patel MD Chest X-Ray 10/02/[id number] Signed Impressions: Service Date/Time: Sunday, October 02, 2016 21:20 - CONCLUSION: Negative chest for acute disease. Kevin Spicer MD FACR Head CT 10/02/16 0000 Signed Impressions: Service Date/Time: Sunday, October 02, 2016 21:45 - CONCLUSION: Negative CT scan of the head for an acute process. Kevin Spicer MD FACR Physical Exam GENERAL: This is a well-nourished, well-developed patient, in no apparent distress. SKIN: No rashes, ecchymoses or lesions. Cool and dry. HEAD: Atraumatic. Normocephalic. No temporal or scalp tenderness. EYES: Pupils equal round and reactive. Extraocular motions intact. No scleral icterus. No injection or drainage. ENT: Nose without bleeding, purulent drainage or septal hematoma. Throat without erythema, tonsillar hypertrophy or exudate. Uvula midline. Airway patent. NECK: Trachea midline. Supple, nontender, no meningeal signs. Complains of neck pain on flexion but able to flex chin to touch chest. CARDIOVASCULAR: HS audible. No murmur appreciated. RESPIRATORY: Clear to auscultation. Breath sounds equal bilaterally. No wheezes , rales, or rhonchi. GASTROINTESTINAL: Abdomen soft, non-tender, nondistended. MUSCULOSKELETAL: Extremities without clubbing, cyanosis, or edema. No joint tenderness, effusion, or edema noted. No calf tenderness. Negative Homans sign bilaterally. Spinal stimulator palpable under skin. NEUROLOGICAL: Awake and alert. Oriented x 3. Psych: cooperative IV line sites with no e/o infection. Assessment & Plan Remarks Possible meningoencephalitis Seizure disorder Acute metabolic encephalopathy on admission: resolved. Hepatitis C positive Chronic pain, DJD, IVDA Spinal stimulator in place Spinal hardware lumbar level. Recs: Follow cultures. Ok to DC home without antibiotics if cultures remain negative at 72 hrs final. If the cultures turn positive or CSF VDRL positive please call me. Follow clinically. HIV negative CSF HSV1/2 PCR : negative Follow CSF VDRL Appreciate neurology help: restarted on seizure meds. d.w : Observe off antibiotics. Follow cultures till final negative and also CSF VDRL. If any of these positive please call me back as the antibiotics for either of those will need to be addressed. Will follow prn over the weekend. Please call me sooner if any change in clinical condition or questions. Tianna Bueno MD Oct 05, 2016 14:59
[2016-10-05] MEDS ORDERED: PHARMACY ORDERED LAB XX ONE (15:45)
[2016-10-06 02:04] LABS: CSF CRYPTOCOCCUS AG CONF ND (NOT DETECTD)
--- NOTE | 2016-10-06 15:04 | EC ---
Study Study Date:10/05/2016 STUDY CONCLUSIONS SUMMARY - Procedure narrative: Image quality was poor. The study was technically limited due to poor acoustic window availability. - Left ventricle: Systolic function was probably normal. The estimated ejection fraction was in the range of 55% to 60%. Recommendations: No vegetation noted, but sub-optimal study, can not rule out vegetation. If LV function is below 40, please consider prescribing an ACEI or ARB or document rationale for non-use. PROCEDURE DATA STUDY STATUS: Elective. Procedure: Transthoracic echocardiography. Image quality was poor. The study was technically limited due to poor acoustic window availability. Scanning was performed from the parasternal, apical, and subcostal acoustic windows. Study completion: The patient tolerated the procedure well. Transthoracic echocardiography. M-mode, complete 2D, complete spectral Doppler, and color Doppler. Height: Height: 70in. Weight: Weight: 189.6lb. Body mass index: BMI: 27.3kg/m^2. Body surface area: BSA: 2.04m^2. Patient status: Inpatient. CARDIAC ANATOMY LEFT VENTRICLE: Systolic function was probably normal. The estimated ejection fraction was in the range of 55% to 60%. Images were inadequate for LV wall motion assessment. AORTIC VALVE: The valve appears to be grossly normal. Doppler: There was no stenosis. Valve area: 1.85cm^2 (Vmax). Indexed valve area: 0.91cm^2/m^2 (Vmax). MITRAL VALVE: Poorly visualized. Doppler: There was no evidence for stenosis. PULMONIC VALVE: Doppler: There was no evidence for stenosis. No significant regurgitation. TRICUSPID VALVE: Limited views, the valve appears to be grossly normal. Doppler: There was no evidence for stenosis. Trace to mild regurgitation. Patient weight: 189.6lb _Ejection fraction:_ 65-75% _Fractional shortening:_ 32% up to 5Kg 5-11.5Kg 11.6-22.9Kg 23-45Kg 45-57Kg Aortic Root 7-13 <17 13-22 17-27 17-27 LA diam 6-13 <23 24-38 33-47 37-40 RVID 10-17 7-15 7-15 7-18 8-17 LVIDd 12-22 <32 24-38 33-47 37-40 LVPW 2-4 3-6 5-7 6-8 7-8 IVS 2-4 3-6 5-7 6-8 7-8 BASIC MEASUREMENTS ADULT NORMAL Left ventricle LV internal dimension, ED, chordal 46.4 mm 43-52 level, PLAX LV internal dimension, ES, chordal 32.7 mm 23-38 level, PLAX Fractional shortening, chordal level, 30 % >29 PLAX LV posterior wall thickness, ED 10.8 mm IVS/LVPW ratio, ED 0.97 <1.3 Ventricular septum Septal thickness, ED 10.5 mm Aortic valve Leaflet separation 21 mm 15-26 BASIC MEASUREMENTS ADULT NORMAL Aortic valve Leaflet separation 21 mm 15-26 Aorta Root diameter, ED 31 mm 20-37 Left atrium Anterior-posterior dimension, ES 25 mm 19-40 Anterior-posterior dimension index, ES 1.23 cm/m^2 <2.2 LA/aortic root ratio 0.81 DOPPLER MEASUREMENTS ADULT NORMAL Main pulmonary artery Pressure, S 21 mm Hg =30 Aortic valve Peak velocity, S 138 cm/s Valve area, Vmax 1.85 cm^2 Valve area index, Vmax 0.91 cm^2/m^2 Mitral valve Peak E-wave velocity 56.3 cm/s Peak A-wave velocity 44.4 cm/s Deceleration time 173 ms 150-230 Peak E/A ratio 1.3 Tricuspid valve Regurgitant peak velocity 189 cm/s Peak RV-RA gradient, S 14 mm Hg Maximal regurgitant velocity 189 cm/s Systemic veins Estimated CVP 10 mm Hg Right ventricle RV pressure, S 24 mm Hg <30 Pulmonic valve Peak velocity, S 82.8 cm/s LEGEND: Mean values are shown as u=mean value. Asterisk (*) garcía values outside specified normal range. Prepared and signed by Eliceo Coles [id number]
== END 2016-10-05 17:45 | disposition left against medical advice (07) | DRG 100 ==
LOC: NEPA 21:10 → NEDA 10-03 01:00 → NEDH 10-03 05:00 → N04B 10-03 18:52
PROVIDERS: ADMIT Hospitalist; ATTEND Hospitalist
PROC: 009U3ZX Drainage of Spinal Canal, Percutaneous Approach, Diagnostic (ICD-10-PCS; principal; 2016-10-03)
DX: G40.909 Epilepsy, unspecified, not intractable, without status epilepticus (principal); G93.41 Metabolic encephalopathy; E11.42 Type 2 diabetes mellitus with diabetic polyneuropathy; R50.9 Fever, unspecified; I25.10 Atherosclerotic heart disease of native coronary artery without angina pectoris; B19.20 Unspecified viral hepatitis C without hepatic coma; G47.33 Obstructive sleep apnea (adult) (pediatric); J44.9 Chronic obstructive pulmonary disease, unspecified; F17.210 Nicotine dependence, cigarettes, uncomplicated; G89.29 Other chronic pain; I69.398 Other sequelae of cerebral infarction; I69.344 Monoplegia of lower limb following cerebral infarction affecting left non-dominant side; I25.2 Old myocardial infarction; M54.5 Low back pain; I10 Essential (primary) hypertension; F11.10 Opioid abuse, uncomplicated
CPT/HCPCS: 62270; 70450; 70553; 71010; 72100; 72158; 76937; 80048; 80053; 80074; 80307; 80320; 81001; 82140; 82550; 82945; 82948; 83605; 83690; 83735; 84100; 84157; 84484; 85025; 85610; 85730; 86140; 86403; 86592; 86703; 87015; 87040; 87070; 87102; 87116; 87205; 87206; 87529; 89051; 93005; 93306; 93971; 95819; 96361; 96365; 96375; A9579; J0696; J1815; J2270; J2543; J3370; J7030; J7040; J7050

== ENCOUNTER 2017-03-10 15:15 | Emergency (ER) | payer MEDICARE, OTHER ==
[~2017-03-10] VITALS: Ht 177.8 cm; Wt 70.0 kg
[~2017-03-10 15:15] MED LIST changes: -ALBU0.086 INH; +AMLO5TAB2 PO; -DIAZ10 PO; -DILA8TAB4 PO; -EXFO5TAB PO; +GLIM2TAB PO; +HYDR-3583 PO; -IBUP800T23 PO; -LORTA10 PO; +MORP1TAB25 PO; -ROBA750T3 PO; -SOMA250T PO
[2017-03-10 15:24] VITALS: BP 142/86; PULSE 86; RESP 20; TEMP 97.8; O2SAT 98
--- NOTE | 2017-03-10 15:55 | PD ---
HPI Chief Complaint: Seizure Time Seen by Provider: 15:30 Travel History International Travel<30 days: No Contact w/Intl Traveler<30days: No Traveled to known affect area: No History of Present Illness HPI 56yo M with PMH of seizure disorder on keppra, CVA with left leg weakness from 2010, CAD, DM, COPD, CKD presents to the ED with EVAC after witnessed seizure for 2 minutes. As per EVAC, pt fell and hit his head. Pt has chronic back and left leg pain for years and was on a morphine pump for it. The pump was removed because it was infected and now has a wound vac. States he did not take his keppra today and does not have it anymore. PFSH Past Medical History Arthritis: Yes Asthma: No Autoimmune Disease: No Anxiety: Yes Depression: No Heart Rhythm Problems: No Cancer: No Cardiovascular Problems: Yes High Cholesterol: Yes Chest Pain: No Congestive Heart Failure: No COPD: Yes Cerebrovascular Accident: Yes Diabetes: Yes Patient Takes Glucophage: Yes Diminished Hearing: No Endocrine: No Gastrointestinal Disorders: Yes GERD: Yes Genitourinary: No Hiatal Hernia: No Hypertension: Yes Immune Disorder: No Implanted Vascular Access Dvce: Yes Musculoskeletal: Yes (CHRONIC BACK/ KNEE PAIN) Neurologic: Yes (was told he has a brain mass) Psychiatric: Yes Reproductive: No Respiratory: Yes Migraines: No Myocardial Infarction: Yes Seizures: Yes Sleep Apnea: No Ulcer: No Past Surgical History Abdominal Surgery: No Cardiac Surgery: No Ear Surgery: No Endocrine Surgery: No Eye Surgery: No Genitourinary Surgery: No Gynecologic Surgery: No Joint Replacement: Yes (BILATERAL KNEES) Oral Surgery: No Thoracic Surgery: No Other Surgery: Yes Social History Alcohol Use: Yes (OCC) Tobacco Use: Yes (3 PPD) Substance Use: No ("SHOT UP DILAUDID TODAY") Allergies-Medications (Allergen,Severity, Reaction): Coded Allergies: No Known Allergies (Verified , 10/02/16) Reported Meds & Prescriptions Reported Meds & Active Scripts Active Reported Amlodipine (Amlodipine Besylate) 5 Mg Tab 5 Mg PO DAILY Glimepiride 2 Mg Tab 2 Mg PO DAILY Take with breakfast or first main meal Morphine ER (Morphine Sulfate) 30 Mg Tab 30 Mg PO BID Hydrocodone-Acetaminophen 10-325 mg Tab 1 Tab PO Q4H PRN Review of Systems Except as stated in HPI: all other systems reviewed are Neg Physical Exam Narrative GENERAL: 56yo M not in distress. SKIN: Focused skin assessment warm/dry. HEAD: Atraumatic. Normocephalic. EYES: Pupils equal and round. No scleral icterus. No injection or drainage. ENT: No nasal bleeding or discharge. Mucous membranes pink and moist. NECK: Trachea midline. No JVD. No midline cervical spine ttp. Pt removed cervical spine collar. CARDIOVASCULAR: Regular rate and rhythm. No murmur appreciated. RESPIRATORY: No accessory muscle use. Clear to auscultation. Breath sounds equal bilaterally. GASTROINTESTINAL: Abdomen soft, non-tender, nondistended. No rebound tenderness or guarding. BACK: Diffuse tenderness. Catheter in lumbar spine attached to wound vac. MUSCULOSKELETAL: No obvious deformities. No clubbing. No cyanosis. No edema. DP pulses intact. NEUROLOGICAL: Awake and alert. No obvious cranial nerve deficits. Pt wont move left leg. Data Data Last Documented VS Vital Signs Date Time Temp Pulse Resp B/P Pulse Ox O2 Delivery O2 Flow Rate FiO2 03/10/17 15:29 18 98 Room Air 03/10/17 15:24 97.8 86 142/[address] Brain W/O Iv Contrast(Rout) (03/10/17 ) Ct Cerv Spine W/O Contrast (03/10/17 ) Complete Blood Count With Diff (03/10/17 15:38) Basic Metabolic Panel (Bmp) (03/10/17 15:38) Magnesium (Mg) (03/10/17 15:38) Blood Glucose (03/10/17 15:38) Electrocardiogram (03/10/17 ) Levetiracetam (Keppra) (03/10/17 16:00) Ketorolac Inj (Toradol Inj) (03/10/17 17:30) Labs Laboratory Tests Test 03/10/17 15:40 White Blood Count 5.0 TH/MM3 Red Blood Count 4.86 MIL/MM3 Hemoglobin 14.0 GM/DL Hematocrit 41.9 % Mean Corpuscular Volume 86.1 FL Mean Corpuscular Hemoglobin 28.7 PG Mean Corpuscular Hemoglobin 33.4 % Concent Red Cell Distribution Width 14.6 % Platelet Count 201 TH/MM3 Mean Platelet Volume 10.6 FL Neutrophils (%) (Auto) 67.9 % Lymphocytes (%) (Auto) 24.6 % Monocytes (%) (Auto) 4.2 % Eosinophils (%) (Auto) 2.4 % Basophils (%) (Auto) 0.9 % Neutrophils # (Auto) 3.4 TH/MM3 Lymphocytes # (Auto) 1.2 TH/MM3 Monocytes # (Auto) 0.2 TH/MM3 Eosinophils # (Auto) 0.1 TH/MM3 Basophils # (Auto) 0.0 TH/MM3 CBC Comment DIFF FINAL Differential Comment Sodium Level 142 MEQ/L Potassium Level 4.1 MEQ/L Chloride Level 109 MEQ/L Carbon Dioxide Level 25.3 MEQ/L Anion Gap 8 MEQ/L Blood Urea Nitrogen 10 MG/DL Creatinine 1.18 MG/DL Estimat Glomerular Filtration 64 ML/MIN Rate Random Glucose 178 MG/DL Calcium Level 8.7 MG/DL Magnesium Level 2.1 MG/DL [facility] Medical Decision Making Medical Screen Exam Complete: Yes Emergency Medical Condition: Yes Interpretation(s) EKG: NSR 86bpm. Normal axis. No ST segment elevation or depression. Differential Diagnosis Seizure secondary to noncompliance vs. electrolyte abnormality vs. ICH Narrative Course 56yo M with PMH of seizure disorder here after witnessed seizure today. CT brain showed mild areas of low density in the cerebral white matter especially the frontal lobes likely related to small vessel ischemic demyelination changes. These findings were seen on a prior MRI examination. An acute abnormality is not seen. CT cspine showed no acute bony abnormality. Chronic changes. Informed by nurse that pt had his IV taken out and has already left before reevaluation and left without being fully evaluated or given any prescription. Pt is AAOx3 and has capacity to leave. Pt ambulated without difficulty in the ED. Diagnosis Primary Impression: Seizure disorder Patient Instructions: General Instructions Departure Forms: Tests/Procedures Additional Instructions: Please return to the ED if you change your mind. Pt left before any prescriptions could be given. Med/Other Pt SpecificInfo: No Change to Meds Disposition: 07 AGAINST MEDICAL ADVICE Condition: Stable Rosalinda Echeverria Mar 10, 2017 15:55
[2017-03-10] MEDS ORDERED: levETIRAcetam 500 MG TAB PO ONE (16:00)
[2017-03-10 16:03] LABS: AUTOMATED NEUTROPHIL # 3.4 TH/MM3 (1.8-7.7); BASOPHIL % 0.9 % (0.0-2.0); EOSINOPHIL # 0.1 TH/MM3 (0-0.4); EOSINOPHIL % 2.4 % (0.0-4.0); HEMATOCRIT 41.9 % (39.0-51.0); HEMO FLAGS DIFF FINAL; LYMPH % 24.6 % (9.0-44.0); LYMPHOCYTE # 1.2 TH/MM3 (1.0-4.8); MEAN CELL VOLUME 86.1 FL (80.0-100.0); MEAN CORPUSCULAR HEMOGLOBIN 28.7 PG (27.0-34.0); MEAN CORPUSCULAR HGB CONC 33.4 % (32.0-36.0); MONO % 4.2 % (0.0-8.0); NEUT % 67.9 % (16.0-70.0); PLATELET COUNT 201 TH/MM3 (150-450); RED BLOOD COUNT 4.86 MIL/MM3 (4.50-5.90); RED CELL DISTRIBUTION WIDTH 14.6 % (11.6-17.2)
[2017-03-10 16:29] LABS: BICARBONATE 25.3 MEQ/L (21.0-32.0); MAGNESIUM 2.1 MG/DL (1.5-2.5); POTASSIUM 4.1 MEQ/L (3.5-5.1)
--- NOTE | 2017-03-10 16:46 | RADRPT ---
EXAM DATE/TIME: 03/10/2017 16:07 [facility] COMPARISON: MRI BRAIN W & W/O CONTRAST, October 04, 2016, 14:46. CT BRAIN W/O CONTRAST, October 02, 2016, 21:45 . INDICATIONS : Possible seizure today with fall. RADIATION DOSE: 56.35 CTDIvol (mGy) MEDICAL HISTORY : Stroke. Seizures. Hypertension. SURGICAL HISTORY : None. ENCOUNTER: Initial ACUITY: 1 day PAIN SCALE: Non-responsive LOCATION: Bilateral head TECHNIQUE: Multiple contiguous axial images were obtained of the head. Using automated exposure control and adj ustment of the mA and/or kV according to patient size, radiation dose was kept as low as reasonably a chievable to obtain optimal diagnostic quality images. DICOM format image data is available electro nically for review and comparison. FINDINGS: CEREBRUM: The ventricles are normal for age. There are some areas of decreased density within the cerebral whit e matter especially the frontal lobes. No evidence of midline shift, mass lesion, hemorrhage or acute infarction. No extra-axial fluid collections are seen. POSTERIOR FOSSA: The cerebellum and brainstem are intact. The 4th ventricle is midline. The cerebellopontine angle i s unremarkable. EXTRACRANIAL: The visualized portion of the orbits is intact. SKULL: The calvaria is intact. No evidence of skull fracture. CONCLUSION: Mild areas of low-density in the cerebral white matter especially the frontal lobes likely related to small vessel ischemic demyelination changes. These findings were seen on a prior MRI examination. An acute abnormality is not seen. Jayce Connors MD on March 10, 2017 at 16:41 Board Certified Radiologist. This report was verified electronically.
--- NOTE | 2017-03-10 17:07 | RADRPT ---
EXAM DATE/TIME: 03/10/2017 16:09 [facility] COMPARISON: CT CERVICAL SPINE W/O CONTRAST W 3D RECON, July 29, 2011, 16:30. INDICATIONS : Possible seizure with fall today. RADIATION DOSE: 35.54 CTDIvol (mGy) MEDICAL HISTORY : Stroke. Seizures. Hypertension. SURGICAL HISTORY : None. ENCOUNTER: Initial ACUITY: 1 day PAIN SCALE: Non-responsive LOCATION: Bilateral neck TECHNIQUE: Volumetric scanning of the cervical spine was performed. Multiplanar reconstructions in the sagittal, coronal and oblique axial planes were performed. Using automated exposure control and adjustment o f the mA and/or kV according to patient size, radiation dose was kept as low as reasonably achievable to obtain optimal diagnostic quality images. DICOM format image data is available electronically f or review and comparison. FINDINGS: VERTEBRAE: The craniovertebral junction is intact. The C1 ring is intact. There is chronic bony density seen a round the superior left lateral aspect of the dens. These are all well-corticated and unchanged in a ppearance from the prior examination. This may represent very prominent hypertrophic change versus t he sequela of prior fracturing. Again, this was present on the prior study from 07/29/2011 and is un changed. C2 is otherwise intact. The cervical vertebral bodies are normal in height. ALIGNMENT: No evidence of subluxation. C2-C3: There is a mild impression on the anterior aspect of the thecal sac at the posterior disc margin rela stephane to either a mild central disc protrusion versus some prominence of the posterior longitudinal lig ament. Significant spinal stenosis is not appreciated. The neural foramina are normal. C3-C4: A significant impression on the thecal sac is not seen. There is some minimal posterior osteophytic ridging. Patient previously appeared to have a disc protrusion in this region. There is minimal unc overtebral hypertrophy. The facet joints are normal. The neural foramina are grossly intact. C4-C5: The disc space is intact. There is no spinal stenosis. There is mild uncovertebral and facet hypert rophy. C5-C6: The disc demonstrates minimal decreased height. There is mild disc bulge and osteophytic ridging cau sing a mild impression on the thecal sac. There is uncovertebral hypertrophy being worse on the righ t. There is mild right neural foraminal narrowing. The left neural foramen appears intact.. C6-C7: The disc demonstrates mild decreased height and minimal bulging. There is uncovertebral hypertrophy being worse on the right. There is some narrowing of the right neural foramen. The left neural fora men appears grossly intact. C7-T1: The bony spinal canal is normal in size. No evidence of disc bulge or herniation. The neural forami na are bilaterally patent. CONCLUSION: 1. No acute bony abnormality is seen. 2. Chronic change seen around the tip of the dens related to prominent degenerative change or possib ly prior fracturing. The appearance in this region is completely unchanged from a prior study from 2 011. 3. Minimal central disc protrusion or prominence of the superior aspect of the posterior longitudina l ligament at the C2-C3 level without significant stenosis. 4. Mild disc changes at the C3-C4, C5-C6 and C6-C7 levels as described above. 5. Uncovertebral hypertrophy with some narrowing of the neural foramina on the right at the C5-C6 an d C6-C7 levels. Jayce Connors MD on March 10, 2017 at 16:44 Board Certified Radiologist. This report was verified electronically.
[2017-03-10] MEDS ORDERED: KETOROLAC TROMETHAMINE 30 MG/ML (IVP) VIAL IV PUSH ONE (17:30)
--- NOTE | 2017-03-12 08:36 | EKG ---
Date Performed: 03/10/2017 Time Performed: 16:02:55 PTAGE: 56 years EKG: Sinus rhythm NORMAL ECG PREVIOUS TRACING : 10/02/2016 22.21 DOCTOR: Davida Siddiqui Interpretating Date/Time 03/12/2017 08:34:50
== END 2017-03-10 18:26 | disposition left against medical advice (07) ==
LOC: NEPE 15:15
DX: G40.909 Epilepsy, unspecified, not intractable, without status epilepticus (principal); E11.9 Type 2 diabetes mellitus without complications; I12.9 Hypertensive chronic kidney disease with stage 1 through stage 4 chronic kidney disease, or unspecified chronic kidney disease; N18.9 Chronic kidney disease, unspecified; E78.00 Pure hypercholesterolemia, unspecified; I25.2 Old myocardial infarction; F17.200 Nicotine dependence, unspecified, uncomplicated; Z79.84 Long term (current) use of oral hypoglycemic drugs; Z86.69 Personal history of other diseases of the nervous system and sense organs; Z86.79 Personal history of other diseases of the circulatory system; Z87.09 Personal history of other diseases of the respiratory system; Z87.39 Personal history of other diseases of the musculoskeletal system and connective tissue; Z86.59 Personal history of other mental and behavioral disorders; Z87.19 Personal history of other diseases of the digestive system
CPT/HCPCS: 70450; 72125; 80048; 83735; 85025; 93005